=== PATIENT | female | born 1935 | race Caucasian/White ===

== ENCOUNTER 2020-02-13 15:07 | Emergency (ER) | payer MEDICARE, OTHER ==
[2020-02-13 16:25] LABS: #Eosinphils 0.1 thou/uL (0.0-0.7); #Lymphocytes 1.2 thou/uL (1.20-3.40); #Monocytes 0.6 thou/uL (0.11-0.59); #Neutrophils 7.6 thou/uL (1.40-6.50); %Basophils 0.3 % (0.0-1.0); %Eosinophils 1.1 % (0.0-10.0); %Lymphocytes 12.3 % (21.0-51.0); %Monocytes 6.6 % (0.0-10.0); %Neutrophils 79.6 % (42.0-75.0); Hemoglobin 14.1 g/dL (12.0-16.0); Mean Corpuscular HGB CONC 32.7 g/dL (32.0-36.0); Mean Corpuscular Hemoglobin 29.4 pg (27.0-31.0); Mean Corpuscular Volume 89.9 fL (78.0-98.0); Mean Platelet Volume 8.1 fL (7.4-10.4); Platelet Count 203 thou/uL (130-400); RBC Distribution Width 12.6 % (11.5-14.5); Red Blood Cell (RBC) Count 4.79 mill/uL (4.20-5.40); White Blood Cell (WBC) Count 9.6 thou/uL (4.8-10.8)
[2020-02-13 16:48] LABS: ALT (SGPT) 9 U/L (8-55); AST (SGOT) 17 U/L (5-34); Alkaline Phosphatase 68 U/L (40-110); Anion Gap 12 mmol/L (10-20); BUN (Urea Nitrogen) 40 mg/dL (9.8-20.1); Bilirubin, Total 0.8 mg/dL (0.2-1.2); Calc. Creatinine Clearance 0 mL/min (70-130); Calcium 9.9 mg/dL (7.8-10.44); Carbon Dioxide 30 mmol/L (23-31); Chloride 100 mmol/L (98-107); Estimated GFR-MDRD 36; Globulin 3.5 g/dL (2.4-3.5); Glucose 155 mg/dL (83-110); Potassium 4.2 mmol/L (3.5-5.1); Protein, Total 7.5 g/dL (6.0-8.3); Sodium 138 mmol/L (136-145)
== END 2020-02-13 20:48 | disposition home or self-care (01) ==
LOC: ERS 15:07
DX: R20.2 Paresthesia of skin (principal); I10 Essential (primary) hypertension; F41.9 Anxiety disorder, unspecified; Z79.899 Other long term (current) drug therapy
CPT/HCPCS: 36415; 80053; 83605; 85025; 99284

== ENCOUNTER 2020-02-14 08:04 | Emergency (ER) | payer MEDICARE ==
--- NOTE | 2020-02-14 09:24 | ULT ---
ULTRASOUND DOPPLER DUPLEX VENOUS RIGHT LOWER EXTREMITY: DATE: 02/14/2020 HISTORY: 84-year-old female with right lower extremity pain. Dr. Oreilly reported the DVT to TREVOR Castro of the ER at 9:20 AM 02/14/2020 TECHNIQUE: Grayscale, color-flow, and spectral analysis, of the right common femoral, profunda femoral, greater saphenous, femoral, popliteal, and posterior tibial, veins. FINDINGS: There is noncompressibility of the proximal, mid, and distal femoral vein, with decreased blood flow. There is no DVT in the rest of the veins. IMPRESSION: Positive for acute deep vein thrombosis of the entire right femoral vein.
[2020-02-14] MEDS ORDERED: Acetaminophen 500 MG TAB ONE (09:55)
[2020-02-14] MEDS ORDERED: Enoxaparin Sodium 100 MG/ML SYRINGE ONE (09:55)
[2020-02-14 11:04] LABS: #Lymphocytes 0.8 thou/uL (1.20-3.40); #Monocytes 0.7 thou/uL (0.11-0.59); #Neutrophils 7.8 thou/uL (1.40-6.50); %Basophils 0.4 % (0.0-1.0); %Eosinophils 0.1 % (0.0-10.0); %Lymphocytes 8.8 % (21.0-51.0); %Monocytes 7.4 % (0.0-10.0); %Neutrophils 83.3 % (42.0-75.0); Hemoglobin 13.8 g/dL (12.0-16.0); Mean Corpuscular HGB CONC 33.1 g/dL (32.0-36.0); Mean Corpuscular Hemoglobin 29.4 pg (27.0-31.0); Mean Corpuscular Volume 88.8 fL (78.0-98.0); Mean Platelet Volume 7.9 fL (7.4-10.4); Platelet Count 178 thou/uL (130-400); RBC Distribution Width 12.5 % (11.5-14.5); White Blood Cell (WBC) Count 9.3 thou/uL (4.8-10.8)
--- NOTE | 2020-02-14 11:24 | RAD ---
PORTABLE CHEST: Date: 02/14/2020 HISTORY: Leg pain. FINDINGS: Lung aguirre appear clear. No infiltrate or vascular congestion. Heart and mediastinum unremarkable. IMPRESSION: No acute findings. POS: OFF
[2020-02-14 11:25] LABS: ALT (SGPT) 13 U/L (8-55); AST (SGOT) 29 U/L (5-34); Albumin 3.8 g/dL (3.4-4.8); Alkaline Phosphatase 65 U/L (40-110); Anion Gap 14 mmol/L (10-20); BUN (Urea Nitrogen) 37 mg/dL (9.8-20.1); Calc. Creatinine Clearance 0 mL/min (70-130); Calcium 9.5 mg/dL (7.8-10.44); Carbon Dioxide 27 mmol/L (23-31); Chloride 100 mmol/L (98-107); Estimated GFR-MDRD 40; Globulin 3.4 g/dL (2.4-3.5); Glucose 114 mg/dL (83-110); Potassium 3.8 mmol/L (3.5-5.1); Protein, Total 7.2 g/dL (6.0-8.3); Sodium 137 mmol/L (136-145)
[2020-02-14] MEDS ORDERED: traMADol HCl 50 MG TAB ONE (14:16)
--- NOTE | 2020-02-19 13:26 | EKG ---
Test Reason : Blood Pressure : / mmHG Vent. Rate : 076 BPM Atrial Rate : 267 BPM P-R Int : 000 ms QRS Dur : 068 ms QT Int : 390 ms P-R-T Axes : 000 -07 002 degrees QTc Int : 438 ms Atrial fibrillation Cannot rule out Anterior infarct , age undetermined Abnormal ECG Confirmed by NASIR LEWIS DO ([id number]), business editor NORMAN GUERRA ([id number] on 02/19/2020 1:25:47 PM Referred By: Confirmed By:NASIR LEWIS DO
== END 2020-02-14 14:33 | disposition short-term general hospital (02) ==
LOC: ERS 08:04
DX: I82.411 Acute embolism and thrombosis of right femoral vein (principal); I10 Essential (primary) hypertension; F41.9 Anxiety disorder, unspecified; Z85.528 Personal history of other malignant neoplasm of kidney; Z79.899 Other long term (current) drug therapy
CPT/HCPCS: 36415; 71045; 80053; 85025; 93005; 96372; J1650

== ENCOUNTER 2020-02-19 13:47 | Inpatient (IN) | payer MEDICARE, OTHER ==
[2020-02-19] MEDS ORDERED: traMADol HCl 50 MG TAB PO PRN (15:55)
--- NOTE | 2020-02-19 17:35 | HP ---
CHIEF COMPLAINT: Ischemic leg. HISTORY OF PRESENT ILLNESS: This is an 84-year-old female with recent diagnosis of DVT, started on Eliquis and transferred to rehab, hypertension, dyslipidemia, who presents to the emergency room on transfer from the rehab facility due to an ischemic right lower extremity. The patient reports over the past month that she has had pain and swelling in her legs. She was seen initially and advised to elevate her legs. She came to the emergency room on February 13 due to inability to move her right leg with associated blueness in it. She was evaluated, found to have a right lower extremity ultrasound and started on Eliquis. Because of the difficulty with movement, she was transferred to [facility]. At the rehab facility, the patient has had progressive numbness, to the point of unable to discern where her foot is with walking. It has also been blue in appearance, cool to the touch. The patient underwent a CT angiogram today, which shows multiple areas of arterial occlusion in her right lower extremity. In discussion between the cardiovascular surgeon and the rehab physician, the patient was transferred to this facility for evaluation and surgical intervention. By report from the rehab physician, the patient did receive IV fluids in preparation for the contrast CT scan. The patient states that she has intermittent pain, describes it as stabbing and burning in her foot, and underneath her knee, stabbing in quality. There is currently no pain now. She denies any precipitating factors or relieving factors. She denies any prior history of this. Aside from her leg, she denies any other health concerns. She notes that she had some blueness in her left leg, however, this has resolved. PAST MEDICAL HISTORY: 1. DVT, diagnosed a week ago and started on Eliquis with a history of PE in 1997, for which the patient has an IVC filter. 2. Dyslipidemia. 3. Hypertension. 4. Insomnia. 5. History of kidney cancer, status post left nephrectomy. 6. 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 PAST SURGICAL HISTORY: 1. Cholecystectomy. 2. Left nephrectomy. 3. IVC filter. SOCIAL HISTORY: The patient denies any alcohol or tobacco. Her surrogate decision makers are her daughters, Kate or Radha. She is a full code. FAMILY HISTORY: Significant for dad who of an PR and mom who of a cancer at 94. ALLERGIES: SULFA. CURRENT MEDICATIONS: Based on a list from the rehab facility, 1. Alprazolam 0.25 mg at bedtime. 2. Apixaban 10 mg b.i.d. 3. Atorvastatin 20 mg at bedtime. 4. Hydrochlorothiazide 12.5 mg b.i.d. 5. Losartan 50 mg b.i.d. 6. Melatonin 6 mg at bedtime. 7. MiraLAX 17 g daily. 8. Propranolol 40 mg b.i.d. As needed medications are, 1. Tylenol 500 mg 1 tablet every 4 hours. 2. Throat lozenges twice daily. 3. Calcium carbonate 500 or 1000 mg every 6 hours. 4. Clonidine 0.1 mg every 6 hours. 5. Hypoglycemia protocol. 6. Guaifenesin 200 mg every 4 hours. 7. Loperamide 2 mg as needed. 8. Simethicone 80 mg t.i.d. 9. Tramadol 50 mg every 4 hours. REVIEW OF SYSTEMS: Positive for constipation and the right lower extremity symptoms. Negative for fevers, chills, nausea, vomiting, abdominal pain, chest pain, or difficulty breathing. All remaining review of systems are reviewed and negative. PHYSICAL EXAMINATION: VITAL SIGNS: Temperature 98, pulse 90, respirations 18, saturation 96% on room air, blood pressure 130/73. GENERAL: Awake, alert, responsive, not in apparent distress. Able to speak in full sentences. HEENT: No scleral icterus. Oral mucosa is pink and moist. NECK: Supple and nontender. LYMPHATICS: No palpable cervical or supraclavicular lymphadenopathy. LUNGS: Clear to auscultation with good air movement. HEART: Normal S1 and S2. Regular rate and rhythm. No significant murmur. ABDOMEN: Soft with present bowel sounds. Nontender, nondistended. EXTREMITIES: Left lower extremity, no pitting edema clubbing or cyanosis. Right lower extremity is dusky in appearance throughout the foot. It is also cool to touch. PSYCHIATRIC: Appears euthymic. NEUROLOGIC: No focal deficits noted. VASCULAR: No palpable pulses in her right lower extremity, 1+ in her left lower extremity. SKIN: Right foot is cool, dusky in appearance. LABORATORY DATA: Reviewed. CBC on 02/16; 7.8, 13.5, 41.2, 162. Renal panel from 02/18; 137, 4.1, 96, 30, 35, 1.12, 114. Baseline creatinine appears to be 1.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 Minimal contrast material throughout the right superficial femoral artery with recommendation for vascular consultation, bilateral runoff disease. IMPRESSION: 1. Right limb ischemia in the context of arterial occlusion and deep venous thrombosis. 2. Chronic kidney disease, stage 3, secondary to single kidney with a history of kidney cancer, stable. 3. Hypertension, appears controlled. 4. Dyslipidemia. 5. Insomnia. 6. Constipation. PLAN: 1. Admission to the hospital. 2. Consultation with Vascular Surgery. For now, per their recommendations, we will order echocardiogram and change the Eliquis to Lovenox. 3. We will increase her statin. 4. We will hold the losartan and hydrochlorothiazide as the patient does have a single kidney, known chronic kidney disease, and did have a contrast study today. She did receive IV fluids in preparation for this study. We will add these medications back as her renal function remains stable. 5. We will continue her propranolol and order p.r.n. alprazolam. 6. Manage pain. We will continue the tramadol as needed. Can escalate if it is needed. 7. I reviewed with the pharmacist the dosing of Lovenox and b.i.d. is appropriate, and the timing to initiate it as the patient did receive Eliquis - we will start tonight. 8. Monitoring renal function as well as her blood count. 9. DVT prophylaxis. The patient is fully anticoagulated. 10. GI prophylaxis not indicated. She will be written for a heart healthy diet. 11. Code status is full. Surrogate decision makers as noted above. 12. Reviewed the plan of care with the patient and her daughter by speaker, no questions or further needs at the end of evaluation. 13. The patient is at high risk given age, comorbidities, and current presentation. Addendum - after dictation, Pharmacist reviewed again and stated daily dosing is appropriate for CrCl estimated at 29 - she changed the order for me. Job ID: [id number] MTDD
[2020-02-19] MEDS: traMADol HCl 50 MG TAB PO PRN (19:26)
[2020-02-19] MEDS ORDERED: Enoxaparin Sodium 80 MG/0.8 ML SYRINGE SC SCH ×2 (21:00)
[2020-02-19] MEDS: ALPRAZolam 0.25 MG TAB PO PRN (21:24)
[2020-02-19] MEDS: Atorvastatin Calcium 40 MG TAB PO SCH (21:24)
[2020-02-19] MEDS: Propranolol 40 MG TAB PO SCH (21:24)
[2020-02-20] MEDS: Acetaminophen 325 MG TAB PO PRN ×3 (00:48→20:51)
[2020-02-20 04:54] LABS: #Eosinphils 0.1 thou/uL (0.0-0.7); #Lymphocytes 1.2 thou/uL (1.20-3.40); #Monocytes 1.5 thou/uL (0.11-0.59); #Neutrophils 7.6 thou/uL (1.40-6.50); %Basophils 0.5 % (0.0-1.0); %Eosinophils 0.6 % (0.0-10.0); %Lymphocytes 11.5 % (21.0-51.0); %Monocytes 14.1 % (0.0-10.0); %Neutrophils 73.3 % (42.0-75.0); Hemoglobin 12.9 g/dL (12.0-16.0); Mean Corpuscular HGB CONC 33.1 g/dL (32.0-36.0); Mean Corpuscular Hemoglobin 29.7 pg (27.0-31.0); Mean Corpuscular Volume 89.8 fL (78.0-98.0); Mean Platelet Volume 8.5 fL (7.4-10.4); Platelet Count 190 thou/uL (130-400); RBC Distribution Width 12.7 % (11.5-14.5); Red Blood Cell (RBC) Count 4.36 mill/uL (4.20-5.40); White Blood Cell (WBC) Count 10.3 thou/uL (4.8-10.8)
[2020-02-20 05:21] LABS: Anion Gap 15 mmol/L (10-20); BUN (Urea Nitrogen) 29 mg/dL (9.8-20.1); Calc. Creatinine Clearance 50 mL/min (70-130); Carbon Dioxide 28 mmol/L (23-31); Chloride 94 mmol/L (98-107); Estimated GFR-MDRD 54; Glucose 99 mg/dL (83-110); Potassium 3.6 mmol/L (3.5-5.1); Sodium 133 mmol/L (136-145)
[2020-02-20] MEDS: Propranolol 40 MG TAB PO SCH ×2 (08:11→20:51)
[2020-02-20] MEDS: Polyethylene Glycol 3350 17 GM Packet PO SCH (08:11)
--- NOTE | 2020-02-20 08:37 | PDOC.HOSPP ---
- Subjective Encounter Date: 02/20/20 (f/u RLE ischemia) Encounter Time: 08:36 Subjective: Pt admitted yesterday for right limb ischemia in the context of arterial occlusion and DVT. She had pain yesterday. Denies any pain now and is sitting up. She has a heating pad and states it is helping. She denies any n/v/abd pain/cp/sob - Objective Vital Signs & Weight: Vital Signs (12 hours) Temp Pulse Resp BP Pulse Ox 02/20/20 08:00 97.7 F 96 18 144/81 H 93 L 02/20/20 04:00 98.1 F 93 18 140/67 92 L Weight Weight 166 lb 3.2 oz I&O: 02/19/20 02/20/20 02/21/20 06:59 06:59 06:59 Intake Total 340 Balance 340 Result Diagrams: 02/20/20 04:00 02/20/20 04:00 EKG Reviewed by me: Yes (a fib, rate 93, QTc 450, no st changes, abnormal r wave prog. Tele - a fib) Hospitalist ROS - Medication Medications: Active Medications Generic Name Dose Route Start Last Admin Trade Name Freq PRN Reason Stop Dose Admin Acetaminophen 650 mg 02/19/20 15:46 02/20/20 00:48 Acetaminophen 325 Mg Tab PO 650 mg Q6H PRN Administration Headache/Fever/Mild Pain (1-3) Alprazolam 0.25 mg 02/19/20 15:55 02/19/20 21:24 Alprazolam 0.25 Mg Tab PO 0.25 mg HS PRN Administration Insomnia Atorvastatin Calcium 40 mg 02/19/20 21:00 02/19/20 21:24 Atorvastatin Calcium 40 Mg Tab PO 40 mg HS MELY Administration Enoxaparin Sodium 70 mg 02/19/20 21:00 02/19/20 21:24 Enoxaparin Sodium 80 Mg/0.8 Ml Syringe SC 70 mg 2100 MELY Administration Influenza Virus Vaccine Quadrival 240 mcg 02/20/20 09:00 02/20/20 08:11 Flu Vacc [id number](65yr Up)/Pf 240 Mcg/0.7 Ml Syringe IM 02/20/20 09:01 Not Given .ONCE ONE Polyethylene Glycol 17 gm 02/20/20 09:00 02/20/20 08:11 Polyethylene Glycol 3350 17 Gm Packet PO 17 gm DAILY MELY Administration Propranolol HCl 40 mg 02/19/20 21:00 02/20/20 08:11 Propranolol 40 Mg Tab PO 40 mg BID MELY Administration Tramadol HCl 50 mg 02/19/20 16:45 02/19/20 19:26 Tramadol Hcl 50 Mg Tab PO 50 mg Q12H PRN Administration Mild-Moderate Pain (1-5) - Exam General Appearance: NAD Heart: no murmur, irregular Respiratory: CTAB, no wheezes, no rales, no ronchi Gastrointestinal: soft, non-tender, non-distended, normal bowel sounds Extremities - other findings: RLE dusky appearance - unchanged by my exam from yesterday Psychiatric: normal affect Hosp A/P (1) Ischemia of right lower extremity Code(s): I99.8 - OTHER DISORDER OF CIRCULATORY SYSTEM Status: Acute (2) Chronic kidney disease (CKD) Code(s): N18.9 - CHRONIC KIDNEY DISEASE, UNSPECIFIED Status: Chronic Qualifiers: Chronic kidney disease stage: stage 3 (moderate) (3) Hypertension Code(s): I10 - ESSENTIAL (PRIMARY) HYPERTENSION Status: Chronic Qualifiers: Hypertension type: essential hypertension Qualified Code(s): I10 - Essential (primary) hypertension (4) Dyslipidemia Code(s): E78.5 - HYPERLIPIDEMIA, UNSPECIFIED Status: Chronic (5) Insomnia Code(s): G47.00 - INSOMNIA, UNSPECIFIED Status: Chronic Qualifiers: Insomnia type: unspecified Qualified Code(s): G47.00 - Insomnia, unspecified (6) Constipation Code(s): K59.00 - CONSTIPATION, UNSPECIFIED Status: Chronic - Plan Right limb ischemia with arterial occlusion and DVT - [facility] consult today - echo ordered for pre-op eval - lovenox with renal dosing - started last night instead of eliquis due to anticipated surgery CKD - stable - ARB and diuretic held due to contrast study yesterday. As BP's are controlled and surgery is anticipated, will continue to hold these HTN - controlled on propranolol only A fib - rate controlled on propranolol, currently on lovenox for stroke risk r eduction dyslipidemia - continue statin - increased yesterday Insomnia - prn alprazolam Constipation - scheduled and prn meds DVT prophy - full anticoagulation for known DVT GI prophy - not indicated code status full reviewed plan of care with patient, no questions or further needs at end of ev al.
[2020-02-20] MEDS ORDERED: FLU VACC QS2020-21(65YR UP)/PF 240 MCG/0.7 ML SYRINGE IM ONE (09:00)
--- NOTE | 2020-02-20 10:18 | CON ---
DATE OF CONSULTATION: 02/20/2020 REASON FOR CONSULTATION: To evaluate the patient with embolic right leg arterial occlusion. HISTORY OF PRESENT ILLNESS: Ms. Allan is an 84-year-old woman, who has had inpatient rehab, diagnosis of right-sided DVT. She has a history of previous DVT around the time of a nephrectomy in 1997. She had an inferior vena cava filter placed at that time. She is anticoagulated with Eliquis. Dr. Hairston noted that she had continued complaints of numbness in her right leg. This led to vascular exam revealing no palpable pulses in the right leg. He contacted Dr. Partida, and they did a CT angiogram, which reveals a right iliac artery occlusion. There was reconstitution at the level of the superficial femoral artery distally. Superficial femoral artery passes down below the knee, where the anterior tibial was occluded. It appears that the peroneal and posterior tibial are patent. Since the patient has been on Eliquis and this has been going on for at least a couple of weeks, she was transferred and has been converted to Lovenox. Eliquis has been held. The patient has no previous history of peripheral vascular disease. She has no previous history of arrhythmia. She is in atrial fibrillation right now on the monitor. Echocardiogram is pending. PAST MEDICAL HISTORY: 1. History of DVT/PE in the remote past - she has not been on any medications at home. 2. Hypertension. 3. Dyslipidemia. 4. Chronic renal insufficiency secondary to nephrectomy. PAST SURGICAL HISTORY: Left nephrectomy. ALLERGIES: SULFA. MEDICATIONS: At home; 1. Propranolol 40 mg b.i.d. 2. Losartan 50 mg b.i.d. 3. Atorvastatin 20 mg at bedtime. 4. Eliquis 5 mg b.i.d. 5. Loperamide 2 mg daily p.r.n. 6. Simethicone 80 mg t.i.d. p.r.n. 7. Catapres 0.1 mg q.6 p.r.n. REVIEW OF SYSTEMS: A 10-point review of systems is performed, is negative except as above. PHYSICAL EXAMINATION: GENERAL: This is a very pleasant 84-year-old woman, resting comfortably on the telemetry unit. VITAL SIGNS: Height 5 feet 2 inches and weight is 166 pounds. Pulse is irregularly irregular with a rate in the 90s. Her blood pressure 144/81. HEENT: Sclerae nonicteric. Pupils are equal and round bilaterally. NECK: Supple. CHEST: Clear bilaterally. She has no rhonchi or rales. HEART: Rhythm is regular. ABDOMEN: Soft and nontender. EXTREMITIES: She has edema of both lower extremities. There are varicosities overlying both lower extremities. She has a significant fatty burden on both lower extremities. VASCULAR: She has palpable left femoral and dorsalis pedis pulse. On the right, I cannot palpate a femoral or dorsalis pedis pulse. ASSESSMENT AND PLAN: Unfortunate, an 84-year-old woman with probable new onset atrial fibrillation with embolus. Unfortunately, this is going on for at least a couple of weeks. Interestingly, she does not have the typical acute ischemic pain of her right lower extremity. I have discussed with her the possibility of doing an embolectomy both into the iliac system and also into the superficial femoral artery if we can get catheters to pass. Other options would be to stent the iliac system and crush the thrombus burden or do a short bypass down onto her femoral artery from the common iliac artery. Reperfusing her profunda should be enough to keep her going as long as we can obtain good inflow. Job ID: [id number]
[2020-02-20] MEDS: traMADol HCl 50 MG TAB PO PRN (12:30)
[2020-02-20 12:40] LABS: SARS-CoV-2 MS2 Positive; SARS-CoV-2 N Gene Negative; SARS-CoV-2 S Gene Negative; SARS-CoV-2 by NAA Not Detected (NotDetected); SARS-CoV-2 orf1ab Negative
--- NOTE | 2020-02-20 19:24 | PDOC.EVN ---
Event Note - Event Note Event Note: Talked with the pharmacy about the anti-factor Xa level - which was elevated (above therapeutic level). The pharmacist is checking another one tonight at 20:00. The patient's renal function is improved today. Will determine next dose with regards to the level, keeping in mind the planned surgery for tomorrow with [facility]. I discussed the current dosing with Dr. Thomas at once daily - he stated the lovenox does not need to be held tonight for surgery. Will collaborate with Pharmacy after the next test result.
[2020-02-20] MEDS ORDERED: Enoxaparin Sodium 40 MG/0.4 ML SYRINGE SC SCH (19:45)
[2020-02-20] MEDS: Atorvastatin Calcium 40 MG TAB PO SCH (20:51)
[2020-02-20] MEDS: ALPRAZolam 0.25 MG TAB PO PRN (20:52)
[2020-02-20] MEDS ORDERED: Enoxaparin Sodium 80 MG/0.8 ML SYRINGE SC SCH (21:45)
--- NOTE | 2020-02-21 00:09 | CON ---
DATE OF CONSULTATION: REASON FOR CONSULTATION: Atrial fibrillation. HISTORY OF PRESENT ILLNESS: Ms. Allan is a delightful 84-year-old woman having leg pain and vascular insufficiency. The patient has history of deep venous thrombosis in the past. She has inferior vena cava filter. She had been on Eliquis. She is not really clear how long she has been on that. She thinks it was started recently. From reading Dr. Manzano's note, it sounds like the Eliquis was started on February 13. She was sent to rehab subsequently. In the rehab facility, she had trouble with numbness and pain in her foot and a blue discolored foot. CT angiogram was done, showed arterial occlusion. It has been found that she is in atrial fibrillation. PAST HISTORY: 1. Deep venous thrombosis. 2. History of nephrectomy. 3. Cholecystectomy. 4. IVC filter. SOCIAL HISTORY: No alcohol or tobacco. FAMILY HISTORY: Father of an SD. MEDICATIONS: Prior to admission: 1. Apixaban 10 mg twice a day. 2. Atorvastatin. 3. Losartan. 4. MiraLAX. 5. Propranolol. SOCIAL HISTORY: No alcohol or tobacco. REVIEW OF SYSTEMS: A 10-point review of systems performed, negative except as above. PHYSICAL EXAMINATION: GENERAL: This is a pleasant 84-year-old woman, resting comfortably, in no distress. VITAL SIGNS: Her blood pressure is 133/72, pulse 80. It is irregular. EYES: Sclerae are nonicteric. MOUTH: Mucous membranes are moist. NECK: Supple. No lymphadenopathy. LUNGS: Clear. CARDIAC: Irregularly irregular. ABDOMEN: Soft and nontender. EXTREMITIES: There is no edema. There is bluish discoloration on the right foot. Dr. Thomas saw the patient. It has been found that she has a right iliac artery occlusion with reconstitution at the level of the superficial femoral. Currently, she is on Lovenox. ASSESSMENT: 1. Atrial fibrillation. 2. Arterial insufficiency. 3. From what I can tell, she was just recently started on Eliquis, although it is not completely clear from the chart. Plan to continue anticoagulation currently with Lovenox. When she goes home, probably back on Eliquis. 4. Really no other therapy indicated from a cardiac standpoint. 5. Echocardiogram revealed ejection fraction of 55% to 60% with atrial fibrillation, moderate to severe left atrial dilatation, probably chronic atrial fibrillation, long-standing, persistent. Job ID: [id number]
[2020-02-21] MEDS: traMADol HCl 50 MG TAB PO PRN ×2 (02:25→15:35)
[2020-02-21 04:50] LABS: #Lymphocytes 0.9 thou/uL (1.20-3.40); #Monocytes 1.4 thou/uL (0.11-0.59); #Neutrophils 8.5 thou/uL (1.40-6.50); %Basophils 0.4 % (0.0-1.0); %Eosinophils 0.4 % (0.0-10.0); %Lymphocytes 8.5 % (21.0-51.0); %Monocytes 12.6 % (0.0-10.0); %Neutrophils 78.1 % (42.0-75.0); Hemoglobin 12.5 g/dL (12.0-16.0); Mean Corpuscular HGB CONC 32.4 g/dL (32.0-36.0); Mean Corpuscular Hemoglobin 28.9 pg (27.0-31.0); Mean Corpuscular Volume 89.3 fL (78.0-98.0); Platelet Count 197 thou/uL (130-400); RBC Distribution Width 12.7 % (11.5-14.5); Red Blood Cell (RBC) Count 4.32 mill/uL (4.20-5.40); White Blood Cell (WBC) Count 10.9 thou/uL (4.8-10.8)
[2020-02-21 05:10] LABS: Anion Gap 11 mmol/L (10-20); BUN (Urea Nitrogen) 28 mg/dL (9.8-20.1); Calc. Creatinine Clearance 48 mL/min (70-130); Calcium 8.9 mg/dL (7.8-10.44); Carbon Dioxide 31 mmol/L (23-31); Chloride 96 mmol/L (98-107); Estimated GFR-MDRD 51; Glucose 109 mg/dL (83-110); Potassium 3.6 mmol/L (3.5-5.1); Sodium 134 mmol/L (136-145)
[2020-02-21] MEDS ORDERED: Fentanyl 100 MCG/2 ML VIAL SLOW IVP PRN ×2 (08:39)
--- NOTE | 2020-02-21 09:00 | PDOC.HOSPP ---
- Subjective Encounter Date: 02/21/20 (f/u ischemic limb) Encounter Time: 08:59 Subjective: Pt today c/o increasing pain, not relieved with the scheduled tramadol. She is thinking about the procedure. she denies cp/sob/n/v/abd pain. Last bm was 2 days ago. - Objective Vital Signs & Weight: Vital Signs (12 hours) Temp Pulse Resp BP Pulse Ox 02/21/20 04:00 98.4 F 107 H 18 130/76 93 L Weight Weight 167 lb 4.8 oz I&O: 02/20/20 02/21/20 02/22/20 06:59 06:59 06:59 Intake Total 340 960 Balance 340 960 Result Diagrams: 02/21/20 04:37 02/21/20 04:37 EKG Reviewed by me: Yes (tele - a fib 70-80's) Hospitalist ROS - Medication Medications: Active Medications Generic Name Dose Route Start Last Admin Trade Name Freq PRN Reason Stop Dose Admin Acetaminophen 650 mg 02/19/20 15:46 02/20/20 20:51 Acetaminophen 325 Mg Tab PO 650 mg Q6H PRN Administration Headache/Fever/Mild Pain (1-3) Alprazolam 0.25 mg 02/19/20 15:55 02/20/20 20:52 Alprazolam 0.25 Mg Tab PO 0.25 mg HS PRN Administration Insomnia Atorvastatin Calcium 40 mg 02/19/20 21:00 02/20/20 20:51 Atorvastatin Calcium 40 Mg Tab PO 40 mg HS MELY Administration Polyethylene Glycol 17 gm 02/20/20 09:00 02/20/20 08:11 Polyethylene Glycol 3350 17 Gm Packet PO 17 gm DAILY MELY Administration Propranolol HCl 40 mg 02/19/20 21:00 02/20/20 20:51 Propranolol 40 Mg Tab PO 40 mg BID MELY Administration Tramadol HCl 50 mg 02/19/20 16:45 02/21/20 02:25 Tramadol Hcl 50 Mg Tab PO 50 mg Q12H PRN Administration Mild-Moderate Pain (1-5) - Exam General Appearance: NAD Heart: no murmur, irregular Respiratory: CTAB, no wheezes, no rales, no ronchi Gastrointestinal: soft, non-tender, non-distended, normal bowel sounds Extremities: no clubbing, no edema Extremities - other findings: dusky appearance to RLE Psychiatric: normal affect Hosp A/P (1) Ischemia of right lower extremity Code(s): I99.8 - OTHER DISORDER OF CIRCULATORY SYSTEM Status: Acute (2) Chronic kidney disease (CKD) Code(s): N18.9 - CHRONIC KIDNEY DISEASE, UNSPECIFIED Status: Chronic Qualifiers: Chronic kidney disease stage: stage 3 (moderate) (3) Hypertension Code(s): I10 - ESSENTIAL (PRIMARY) HYPERTENSION Status: Chronic Qualifiers: Hypertension type: essential hypertension Qualified Code(s): I10 - Essential (primary) hypertension (4) Dyslipidemia Code(s): E78.5 - HYPERLIPIDEMIA, UNSPECIFIED Status: Chronic (5) Insomnia Code(s): G47.00 - INSOMNIA, UNSPECIFIED Status: Chronic Qualifiers: Insomnia type: unspecified Qualified Code(s): G47.00 - Insomnia, unspecified (6) Constipation Code(s): K59.00 - CONSTIPATION, UNSPECIFIED Status: Chronic - Plan Right limb ischemia with arterial occlusion and DVT - surgery today with [facility] - continuing lovenox with renal dosing at q24h - pt is on the borderline cut-off of creatinine clearance 30 - add prn fentanyl IV for additional pain control. Pt is on renal dosing for tramadol. CKD - stable - ARB and diuretic on hold due to contrast study 2 days ago and normal bp's. Resume after surgery as needed. HTN - controlled on propranolol only A fib - rate controlled on propranolol, currently on lovenox for stroke risk reduction dyslipidemia - continue statin Insomnia - prn alprazolam Constipation - scheduled and prn meds DVT prophy - full anticoagulation for known DVT GI prophy - not indicated code status full reviewed plan of care with patient, no questions or further needs at end of eval.
[2020-02-21] MEDS: Propranolol 40 MG TAB PO SCH ×2 (09:08→21:09)
[2020-02-21] MEDS: Polyethylene Glycol 3350 17 GM Packet PO SCH (09:08)
[2020-02-21] MEDS ORDERED: CEFAZOLIN 2 GM in Premix Bag 1 BAG IVPB SCH (11:30)
[2020-02-21] MEDS ORDERED: Fentanyl 100 MCG/2 ML VIAL ONE (12:00)
[2020-02-21] MEDS ORDERED: Protamine Sulfate 50 MG/5 ML VIAL ONE (12:24)
[2020-02-21] MEDS ORDERED: Bupivacaine/Epinephrine 0.25% 30 ML VIAL ONE (12:24)
[2020-02-21] MEDS ORDERED: Heparin 5,000 UNITS/ML VIAL ONE (12:24)
[2020-02-21] MEDS ORDERED: Fentanyl 250 MCG/5 ML VIAL ONE (12:36)
[2020-02-21] MEDS ORDERED: Lidocaine 1% PF 5 ML VIAL ONE (13:18)
[2020-02-21] MEDS ORDERED: Glycopyrrolate 0.2 MG/ML 5 ML SYRINGE ONE (13:18)
[2020-02-21] MEDS ORDERED: PROPOFOL 200 MG/20 ML VIAL ONE (13:18)
[2020-02-21] MEDS ORDERED: Rocuronium Bromide 10 MG/ML (10ML VIAL) ONE (13:18)
[2020-02-21] MEDS ORDERED: PHENYLEPHRINE-NS 100 MCG/ML 10 ML SYRINGE ONE (13:18)
[2020-02-21] MEDS ORDERED: Calcium Chloride 1 GM/10 ML Abboject SYRINGE ONE (13:18)
[2020-02-21] MEDS ORDERED: Ondansetron PF 4 MG/2 ML Vial ONE (13:18)
--- NOTE | 2020-02-21 15:12 | OP ---
DATE OF PROCEDURE: 02/20/2020 PREOPERATIVE DIAGNOSIS: History of atrial fibrillation with embolus to the right lower extremity. POSTOPERATIVE DIAGNOSIS: History of atrial fibrillation with embolus to the right lower extremity. PROCEDURE PERFORMED: Right iliofemoral embolectomy. TOOL CARRIER: Jose Partida MD ANESTHESIA: General endotracheal. ESTIMATED BLOOD LOSS: Less than 100. DESCRIPTION OF PROCEDURE: After consent was obtained, the patient was brought to the operating room and placed in supine position on the operating room table. Appropriate central line and monitors were placed and general endotracheal anesthesia was induced. Right groin was prepped and draped in the usual sterile fashion. Femoral cutdown was performed through a transverse incision. Common femoral, profunda femoris, and superficial femoral artery origins were carefully dissected free from surrounding tissue. A transverse arteriotomy was performed in the common femoral artery just above the bifurcation. There was a thrombus within the common femoral artery. A #4 Jaime was passed proximally into the iliac artery and withdrawn. There was a large volume of clot, which was withdrawn. The 2nd pass yielded less thrombus and the 3rd pass was clean. The artery was flushed with heparinized saline. The patient was given 5000 units of heparin IV. A thrombectomy catheter was passed down the superficial femoral artery. This yielded again a large volume of thrombus. Three passes were made before a clear pass was performed. The artery was flushed with heparinized saline. The origin of the profundus was cleared with DeBakey forceps. This had good backbleeding and was flushed with heparinized saline. The arteriotomy was closed in a running dual layer fashion with 5-0 Prolene suture. On release of the clamps, there was good antegrade flow and a palpable pulse within the femoral artery. Hemostasis was insured. Wounds were irrigated and closed in layers. Dermabond applied to the skin. The patient was transferred to Recovery in stable condition. Needle, sponge, and instrument counts were all reported correct at the end of the procedure. Job ID: [id number] [facility]
[2020-02-21] MEDS ORDERED: Sodium Chloride 0.9% 1,000 ML IV SCH (18:00)
[2020-02-21 18:58] LABS: #Lymphocytes 0.8 thou/uL (1.20-3.40); #Monocytes 1.5 thou/uL (0.11-0.59); #Neutrophils 13.5 thou/uL (1.40-6.50); %Basophils 0.2 % (0.0-1.0); %Eosinophils 0.1 % (0.0-10.0); %Lymphocytes 5.2 % (21.0-51.0); %Monocytes 9.6 % (0.0-10.0); %Neutrophils 84.9 % (42.0-75.0); Hemoglobin 11.9 g/dL (12.0-16.0); Mean Corpuscular HGB CONC 33.6 g/dL (32.0-36.0); Mean Corpuscular Hemoglobin 30.1 pg (27.0-31.0); Mean Corpuscular Volume 89.7 fL (78.0-98.0); Mean Platelet Volume 8.2 fL (7.4-10.4); Platelet Count 226 thou/uL (130-400); RBC Distribution Width 12.7 % (11.5-14.5); Red Blood Cell (RBC) Count 3.94 mill/uL (4.20-5.40); White Blood Cell (WBC) Count 15.9 thou/uL (4.8-10.8)
[2020-02-21 19:12] LABS: Actual Bicarbonate (HCO3a) 25.4 mEq/L (22-28); Base Excess (BEa) 0.4 mEq/L (-2.0 to +3.0); CO2 Tension 42.6 mmHg (35.0-45.0); Carboxyhemoglobin (COHb) 0.3 gm% (0.0-3.0); O2 Tension (PaO2), arterial 150.4 mmHg (> 60.0); Potassium - ABG Lab 3.95 mmol/L (3.70-5.30); pH, Arterial 7.39 (7.35-7.45)
[2020-02-21 19:13] LABS: Puncture Site L RADIAL
[2020-02-21] MEDS ORDERED: Enoxaparin Sodium 80 MG/0.8 ML SYRINGE SC SCH (21:00)
[2020-02-21] MEDS: CEFAZOLIN 2 GM in Premix Bag 1 BAG IVPB SCH (21:08)
[2020-02-21] MEDS: Atorvastatin Calcium 40 MG TAB PO SCH (21:09)
--- NOTE | 2020-02-22 01:09 | CON ---
DATE OF CONSULTATION: I have been called numerous times and went to the room numerous times to visit with Ms. Allan postoperatively. She underwent a right femoral artery embolectomy today. She is fully anticoagulated. She has had blood pressures in the upper 80s and low 90s postoperatively. She was given 1 L saline bolus. She has atrial fibrillation and her rate is controlled in the low 100 and upper 90s. This has been stable from preop. We have rechecked her hemoglobin and her current hemoglobin is 11.9 - preoperatively, it was 12.5. We have checked a blood gas. Her pH is 7.39, pCO2 of 42, PO2 of 150. Hemoglobin on the blood gas is 11. There has been some consternation about the right groin incision site having a hematoma - she has very doughy and fatty legs. The subcutaneous tissue was obviously stretched at the time of her surgery, and she has what I would expect in an 84-year-old woman who is fully anticoagulated to have post procedure. Her abdomen is soft and nontender I tried to reassure the staff but have been unable to quell their fears. Therefore, I am transferring her to the intensive care unit for monitoring higher level of care. We will recheck her blood counts in the morning. Otherwise, continue with current plan. Job ID: [id number] MTDD
[2020-02-22] MEDS: CEFAZOLIN 2 GM in Premix Bag 1 BAG IVPB SCH ×2 (04:01→12:36)
[2020-02-22 07:05] LABS: #Lymphocytes 0.9 thou/uL (1.20-3.40); #Neutrophils 15.2 thou/uL (1.40-6.50); %Basophils 0.1 % (0.0-1.0); %Eosinophils 0.1 % (0.0-10.0); %Lymphocytes 4.8 % (21.0-51.0); %Monocytes 11.2 % (0.0-10.0); %Neutrophils 83.7 % (42.0-75.0); Hemoglobin 10.3 g/dL (12.0-16.0); Mean Corpuscular HGB CONC 32.2 g/dL (32.0-36.0); Mean Corpuscular Hemoglobin 29.5 pg (27.0-31.0); Mean Corpuscular Volume 91.6 fL (78.0-98.0); Mean Platelet Volume 8.5 fL (7.4-10.4); Platelet Count 232 thou/uL (130-400); RBC Distribution Width 12.8 % (11.5-14.5); White Blood Cell (WBC) Count 18.2 thou/uL (4.8-10.8)
[2020-02-22] MEDS ORDERED: Digoxin 0.5 MG/2 ML AMP ONE (09:57)
[2020-02-22] MEDS ORDERED: Sodium Chloride 0.9% 500 ML IVPB SCH (11:00)
[2020-02-22] MEDS ORDERED: Digoxin 0.5 MG/2 ML AMP SLOW IVP SCH (11:00)
--- NOTE | 2020-02-22 13:27 | PRG ---
DATE OF SERVICE: 02/22/2020 SUBJECTIVE: Ms. Allan had a drop in blood pressure. This morning she responded to intravenous digoxin and fluid bolus. OBJECTIVE: VITAL SIGNS: Blood pressure this morning 96/50, pulse 90. It is irregular. LUNGS: Clear. CARDIAC: Irregularly irregular. ABDOMEN: Obese, nontender. EXTREMITIES: The right lower extremity is warm and dry. The left foot is cool, but not cold. ASSESSMENT: 1. Atrial fibrillation, chronic. 2. Status post femoral embolectomy. 3. Hypotension, uncertain etiology. PLAN: 1. She received fluid. 2. We will repeat an EKG. 3. She is due to resume anticoagulation tonight. Job ID: [id number]
[2020-02-22 13:45] LABS: #Lymphocytes 0.8 thou/uL (1.20-3.40); #Monocytes 2.3 thou/uL (0.11-0.59); #Neutrophils 15.5 thou/uL (1.40-6.50); %Basophils 0.1 % (0.0-1.0); %Eosinophils 0.1 % (0.0-10.0); %Lymphocytes 4.4 % (21.0-51.0); %Monocytes 12.4 % (0.0-10.0); %Neutrophils 83.2 % (42.0-75.0); Hemoglobin 9.3 g/dL (12.0-16.0); Mean Corpuscular HGB CONC 33.3 g/dL (32.0-36.0); Mean Corpuscular Hemoglobin 30.2 pg (27.0-31.0); Mean Corpuscular Volume 90.6 fL (78.0-98.0); Mean Platelet Volume 8.4 fL (7.4-10.4); Platelet Count 227 thou/uL (130-400); RBC Distribution Width 12.8 % (11.5-14.5); Red Blood Cell (RBC) Count 3.07 mill/uL (4.20-5.40); White Blood Cell (WBC) Count 18.7 thou/uL (4.8-10.8)
--- NOTE | 2020-02-22 13:50 | PDOC.HOSPP ---
- Subjective Encounter Date: 02/22/20 Encounter Time: 12:00 Subjective: awake, oriented well, has mild dyscomfort in right leg no chest pain or palp is worried she will lose her right leg - Objective Vital Signs & Weight: Vital Signs (12 hours) Temp Pulse 02/22/20 10:00 120 H 02/22/20 04:00 98.1 F Weight Admit Weight 166 lb Weight 167 lb 1.766 oz Most Recent Monitor Data Heart Rate from ECG 121 NIBP 66/46 NIBP BP-Mean 50 Respiration from ECG 16 SpO2 100 I&O: 02/21/20 02/22/20 02/23/20 06:59 06:59 06:59 Intake Total 960 504 100 Output Total 100 Balance 960 404 100 Result Diagrams: 02/22/20 12:54 02/21/20 04:37 Hospitalist ROS - Medication Medications: Active Medications Generic Name Dose Route Start Last Admin Trade Name Freq PRN Reason Stop Dose Admin Acetaminophen 650 mg 02/19/20 15:46 02/20/20 20:51 Acetaminophen 325 Mg Tab PO 650 mg Q6H PRN Administration Headache/Fever/Mild Pain (1-3) Alprazolam 0.25 mg 02/19/20 15:55 02/20/20 20:52 Alprazolam 0.25 Mg Tab PO 0.25 mg HS PRN Administration Insomnia Atorvastatin Calcium 40 mg 02/19/20 21:00 02/21/20 21:09 Atorvastatin Calcium 40 Mg Tab PO 40 mg HS MELY Administration Fentanyl 25 mcg 02/21/20 08:39 02/21/20 09:08 Fentanyl 100 Mcg/2 Ml Vial SLOW IVP 25 mcg Q4H PRN Administration Mild-Moderate Pain (1-5) Polyethylene Glycol 17 gm 02/20/20 09:00 02/21/20 09:08 Polyethylene Glycol 3350 17 Gm Packet PO Not Given DAILY MELY Propranolol HCl 40 mg 02/19/20 21:00 02/21/20 21:09 Propranolol 40 Mg Tab PO Not Given BID MELY Tramadol HCl 50 mg 02/19/20 16:45 02/21/20 02:25 Tramadol Hcl 50 Mg Tab PO 50 mg Q12H PRN Administration Mild-Moderate Pain (1-5) - Exam General Appearance: awake alert Eye: PERRL, anicteric sclera ENT: no oropharyngeal lesions, moist mucosa Neck: supple, no JVD Heart: RRR, no murmur Respiratory: no wheezes, no rales Gastrointestinal: soft, non-tender, non-distended, normal bowel sounds Extremities - other findings: right LE edema, is warm. Left LE is a bit cold to touch, pulses felt though Neurological: cranial nerve grossly intact, no focal deficits Psychiatric: normal affect, A&O x 3 Hosp A/P (1) Ischemia of right lower extremity Code(s): I99.8 - OTHER DISORDER OF CIRCULATORY SYSTEM Status: Acute (2) Deep vein thrombosis (DVT) of right lower extremity Code(s): I82.401 - ACUTE EMBOLISM AND THOMBOS UNSP DEEP VEINS OF R LOW EXTREM Status: Acute Qualifiers: Affected thrombotic vein of extremity: femoral Chronicity: acute Qualified Code(s): I82.411 - Acute embolism and thrombosis of right femoral vein (3) Afib Code(s): I48.91 - UNSPECIFIED ATRIAL FIBRILLATION Status: Chronic Qualifiers: Atrial fibrillation type: paroxysmal Qualified Code(s): I48.0 - Paroxysmal atrial fibrillation (4) Chronic kidney disease (CKD) Code(s): N18.9 - CHRONIC KIDNEY DISEASE, UNSPECIFIED Status: Chronic Qualifiers: Chronic kidney disease stage: stage 3 (moderate) (5) Dyslipidemia Code(s): E78.5 - HYPERLIPIDEMIA, UNSPECIFIED Status: Chronic (6) Hypertension Code(s): I10 - ESSENTIAL (PRIMARY) HYPERTENSION Status: Chronic Qualifiers: Hypertension type: essential hypertension Qualified Code(s): I10 - Essential (primary) hypertension - Plan she got diagnosed with right leg massive dvt on 02/13 and was sent to rehab to [facility] is currently s/p iliofemoral embolectomy likely caused by afib 02/20 right LE is edematous (non pitting) likely from massive dvt, is warm to touch, can elevate or wear dustin hose if cleared by vascular surgery. is on lipitor, propranolol, fentanyl prn may add asp and eliquis renal dose if cleared by PT to mobilize as tolerated I have discussed code status and she wants to have everything done, she was functional before, was gardening and ambulating wo assistive devices (used to sit for 2 hr stretches in between to watch tv) May tx to medical floor
[2020-02-22 14:06] LABS: Troponin I 0.048 ng/mL (< 0.028)
[2020-02-22] MEDS: Polyethylene Glycol 3350 17 GM Packet PO SCH (17:57)
[2020-02-22] MEDS: Propranolol 40 MG TAB PO SCH ×2 (17:57→20:47)
[2020-02-22] MEDS: Atorvastatin Calcium 40 MG TAB PO SCH (20:44)
[2020-02-22] MEDS: Acetaminophen 325 MG TAB PO PRN (20:44)
[2020-02-22] MEDS ORDERED: Apixaban 5 MG TAB PO SCH (21:00)
[2020-02-23] MEDS: traMADol HCl 50 MG TAB PO PRN ×2 (00:44→13:35)
--- NOTE | 2020-02-23 00:57 | CON ---
DATE OF CONSULTATION: 02/22/2020 HISTORY OF PRESENT ILLNESS: Ms. Allan is very pleasant 84-year-old female. I have taken care of her in the distant past. She remembered me when I walked in the room. She unfortunately had atrial fibrillation and required an embolectomy to restore blood flow to her right lower extremity. I was consulted because of her presence in the Critical Care Unit. PAST MEDICAL HISTORY: Remarkable for 1. DVT. 2. History of hypertension. 3. Lipid disorder. 4. History of nephrectomy here at [facility] when I met her in the 90s. 5. History of insomnia. 6. History of an inferior vena cava filter. 7. History of cholecystectomy. SOCIAL HISTORY: She is nonsmoker and nondrinker. FAMILY HISTORY: Positive for vascular disease and cancer. ALLERGIES: SHE REPORTS ALLERGIES TO SULFA. REVIEW OF SYSTEMS: Otherwise negative. Says her legs have tingling, but other than that, it feels much better. PHYSICAL EXAMINATION: VITAL SIGNS: Heart rate is 80, blood pressure 78/52, respiratory rate is 20. HEAD AND NECK EXAM: Unremarkable. LUNGS: Clear. HEART: Regular rhythm. S1, S2 are normal. ABDOMEN: Soft and nontender. EXTREMITIES: Right lower extremity is actually warmer than her left lower extremity. NEURO: Nonfocal. IMPRESSION: Status post embolectomy associated with atrial fibrillation, clinically stable. We will follow with the other physicians caring for her. She appears to be stable at this time. This is a 70 min consult with greater than 50% of the time spent on the unit with coordination of care excluding procedures. Job ID: [id number] MTDD
[2020-02-23] MEDS: HYDROcodone/Acetaminophen 5/325 mg Tablet PO PRN (02:16)
[2020-02-23] MEDS: Acetaminophen 325 MG TAB PO PRN (02:17)
[2020-02-23 03:17] LABS: #Lymphocytes 0.9 thou/uL (1.20-3.40); #Monocytes 2.2 thou/uL (0.11-0.59); #Neutrophils 14.2 thou/uL (1.40-6.50); %Eosinophils 0.1 % (0.0-10.0); %Lymphocytes 5.3 % (21.0-51.0); %Monocytes 12.6 % (0.0-10.0); Hemoglobin 8.6 g/dL (12.0-16.0); Mean Corpuscular Hemoglobin 29.7 pg (27.0-31.0); Mean Corpuscular Volume 89.9 fL (78.0-98.0); Mean Platelet Volume 8.8 fL (7.4-10.4); Platelet Count 241 thou/uL (130-400); RBC Distribution Width 12.8 % (11.5-14.5); Red Blood Cell (RBC) Count 2.89 mill/uL (4.20-5.40); White Blood Cell (WBC) Count 17.3 thou/uL (4.8-10.8)
[2020-02-23] MEDS ORDERED: Apixaban 5 MG TAB PO SCH (09:00)
[2020-02-23] MEDS ORDERED: Digoxin 0.125 MG TAB PO SCH (09:00)
[2020-02-23] MEDS: Polyethylene Glycol 3350 17 GM Packet PO SCH (10:05)
[2020-02-23] MEDS: Sodium Chloride 0.9% 1,000 ML IV SCH ×3 (10:06→18:08)
--- NOTE | 2020-02-23 10:06 | PRG ---
DATE OF SERVICE: 02/23/2020 SUBJECTIVE: Ms. Allan says she feels better today. OBJECTIVE: VITAL SIGNS: Her blood pressure is still in the 80s systolic, pulse is 80 and it is irregular, it is in atrial fibrillation. LUNGS: Clear. CARDIAC: Irregularly irregular. ABDOMEN: Soft, nontender. EXTREMITIES: Both are warm and dry now. LABORATORY DATA: The patient's hemoglobin is dropped slightly more down to 8.6. ASSESSMENT: 1. Atrial fibrillation, persistent. 2. Status post embolectomy, successful. 3. Hypotension. 4. Mild anemia. PLAN: 1. She is going to go back on the Eliquis this morning. 2. Give her some intravenous fluid. 3. Need to keep her in the ICU till her blood pressure stabilizes. 4. Stop beta blockers. 5. Continue digoxin. Job ID: [id number]
[2020-02-23] MEDS: Propranolol 40 MG TAB PO SCH (10:15)
[2020-02-23] MEDS ORDERED: Sodium Chloride 0.9% 400 ML IVPB SCH (13:15)
[2020-02-23] MEDS ORDERED: DOPamine 400 MG/D5W 250 ML 250 ML IVPB SCH (14:00)
--- NOTE | 2020-02-23 14:08 | PDOC.HOSPP ---
- Subjective Encounter Date: 02/23/20 Encounter Time: 08:40 Subjective: awake, has some groin pain otherwise feels good is eating well no sob or abd pain or nausea - Objective Vital Signs & Weight: Vital Signs (12 hours) Temp Pulse Pulse Ox 02/23/20 12:00 98.7 F 02/23/20 10:06 81 02/23/20 08:00 98 F 99 02/23/20 04:00 97.8 F Weight Admit Weight 166 lb Weight 175 lb 14.862 oz Most Recent Monitor Data Heart Rate from ECG 88 NIBP 88/40 NIBP BP-Mean 55 Respiration from ECG 19 SpO2 100 I&O: 02/22/20 02/23/20 02/24/20 06:59 06:59 06:59 Intake Total 504 1254 200 Output Total 100 0 0 Balance 404 1254 200 Result Diagrams: 02/23/20 02:25 02/23/20 02:25 Hospitalist ROS - Medication Medications: Active Medications Generic Name Dose Route Start Last Admin Trade Name Freq PRN Reason Stop Dose Admin Acetaminophen 650 mg 02/19/20 15:46 02/23/20 02:17 Acetaminophen 325 Mg Tab PO 325 mg Q6H PRN Administration Headache/Fever/Mild Pain (1-3) Hydrocodone Bitart/Acetaminophen 1 tab 02/23/20 02:01 02/23/20 02:16 Hydrocodone/Acetaminophen 5/325 Mg Tablet PO 1 tab Q4H PRN Administration Mild-Moderate Pain (1-5) Alprazolam 0.25 mg 02/19/20 15:55 02/20/20 20:52 Alprazolam 0.25 Mg Tab PO 0.25 mg HS PRN Administration Insomnia Apixaban 5 mg 02/23/20 09:00 02/23/20 10:06 Apixaban 5 Mg Tab PO 5 mg BID MELY Administration Atorvastatin Calcium 40 mg 02/19/20 21:00 02/22/20 20:44 Atorvastatin Calcium 40 Mg Tab PO 40 mg HS MELY Administration Digoxin 0.125 mg 02/23/20 09:00 02/23/20 10:06 Digoxin 0.125 Mg Tab PO 0.125 mg DAILY MELY Administration Fentanyl 25 mcg 02/21/20 08:39 02/21/20 09:08 Fentanyl 100 Mcg/2 Ml Vial SLOW IVP 25 mcg Q4H PRN Administration Mild-Moderate Pain (1-5) Sodium Chloride 1,000 mls @ 100 mls/hr 02/23/20 09:15 02/23/20 12:45 Normal Saline 0.9% IV 1,000 mls .Q10H MELY Administration Sodium Chloride 400 mls @ 0 mls/hr 02/23/20 13:15 02/23/20 13:36 Normal Saline 0.9% IVPB 02/23/20 15:00 400 mls NOW MELY Administration As Directed Polyethylene Glycol 17 gm 02/20/20 09:00 02/23/20 10:05 Polyethylene Glycol 3350 17 Gm Packet PO Not Given DAILY MELY Tramadol HCl 50 mg 02/19/20 16:45 02/23/20 13:35 Tramadol Hcl 50 Mg Tab PO 50 mg Q12H PRN Administration Mild-Moderate Pain (1-5) - Exam General Appearance: awake alert Eye: PERRL, anicteric sclera ENT: no oropharyngeal lesions, moist mucosa Neck: supple, no JVD Heart: no murmur, irregular Respiratory: no wheezes, no rales Gastrointestinal: soft, non-distended, normal bowel sounds, no guarding, no rigidity Extremities: no cyanosis, 1+ LE edema Extremities - other findings: right LE edema is receding well, is warm to touch Neurological: cranial nerve grossly intact, no focal deficits Psychiatric: normal affect, A&O x 3 Hosp A/P (1) Ischemia of right lower extremity Code(s): I99.8 - OTHER DISORDER OF CIRCULATORY SYSTEM Status: Acute (2) Deep vein thrombosis (DVT) of right lower extremity Code(s): I82.401 - ACUTE EMBOLISM AND THOMBOS UNSP DEEP VEINS OF R LOW EXTREM Status: Acute Qualifiers: Affected thrombotic vein of extremity: femoral Chronicity: acute Qualified Code(s): I82.411 - Acute embolism and thrombosis of right femoral vein (3) Afib Code(s): I48.91 - UNSPECIFIED ATRIAL FIBRILLATION Status: Chronic Qualifiers: Atrial fibrillation type: paroxysmal Qualified Code(s): I48.0 - Paroxysmal atrial fibrillation (4) Chronic kidney disease (CKD) Code(s): N18.9 - CHRONIC KIDNEY DISEASE, UNSPECIFIED Status: Chronic Qualifiers: Chronic kidney disease stage: stage 3 (moderate) (5) Dyslipidemia Code(s): E78.5 - HYPERLIPIDEMIA, UNSPECIFIED Status: Chronic (6) Hypertension Code(s): I10 - ESSENTIAL (PRIMARY) HYPERTENSION Status: Chronic Qualifiers: Hypertension type: essential hypertension Qualified Code(s): I10 - Essential (primary) hypertension (7) ISMAEL (acute kidney injury) Code(s): N17.9 - ACUTE KIDNEY FAILURE, UNSPECIFIED Status: Acute - Plan she got diagnosed with right leg massive dvt on 02/13 and was sent to rehab to recuperate is currently s/p iliofemoral embolectomy likely caused by afib 02/20 right LE is edematous from massive dvt is receding now, has ivc filter as well. is on eliquis, lipitor, propranolol, digoxin, fentanyl prn PT to mobilize as tolerated I have discussed code status and she wants to have everything done, she was functional before, was gardening and ambulating wo assistive devices (used to sit for 2 hr stretches in between to watch tv) urine output is decreasing per staff, is on iv fluids, creatinine around 2 today, d/w . If above gets worse may add levophed, watch for afib
[2020-02-23 15:26] LABS: Albumin 2.4 g/dL (3.4-4.8); Anion Gap 11 mmol/L (10-20); BUN (Urea Nitrogen) 65 mg/dL (9.8-20.1); BUN/Creatinine Ratio 29.41; Calc. Creatinine Clearance 23 mL/min (70-130); Calcium 7.6 mg/dL (7.8-10.44); Carbon Dioxide 25 mmol/L (23-31); Chloride 103 mmol/L (98-107); Estimated GFR-MDRD 21; Glucose 152 mg/dL (83-110); Phosphorus 3.9 mg/dL (2.3-4.7); Potassium 4.4 mmol/L (3.5-5.1); Sodium 135 mmol/L (136-145)
--- NOTE | 2020-02-23 15:49 | PRG ---
DATE OF SERVICE: 02/23/2020 OBJECTIVE: VITAL SIGNS: Ms. Allan's heart rates in the 90s, blood pressure 91/61, respiratory rates in the teens. LUNGS: Unchanged. HEART: Unchanged. ABDOMEN: Unchanged. LABORATORY DATA: White count 17.3, hemoglobin 8.6, platelets 241. Sodium 134, potassium 3.6, chloride 96, bicarb 31, BUN 28, creatinine 1.03, it was two days ago. IMPRESSION: Status post embolectomy for large thrombus involving her right lower extremity, clinically stable at this time. We will continue to follow. Job ID: [id number]
[2020-02-23] MEDS ORDERED: DOPamine 400 MG/D5W 250 ML 250 ML ONE (17:06)
--- NOTE | 2020-02-23 17:15 | EKG ---
Test Reason : Blood Pressure : / mmHG Vent. Rate : 087 BPM Atrial Rate : 394 BPM P-R Int : 000 ms QRS Dur : 078 ms QT Int : 358 ms P-R-T Axes : 000 001 246 degrees QTc Int : 430 ms Atrial fibrillation Abnormal ECG When compared with ECG of 20-FEB-2020 07:55, (Unconfirmed) T wave inversion now evident in Anterior leads Confirmed by JAYLON ROLDAN (2) on 02/23/2020 5:15:11 PM Referred By: GOOD Confirmed By:JAYLON ROLDAN
[2020-02-23] MEDS: DOPamine 400 MG/D5W 250 ML 250 ML IVPB SCH (18:08)
[2020-02-23] MEDS: Atorvastatin Calcium 40 MG TAB PO SCH (21:44)
[2020-02-24 05:22] LABS: #Lymphocytes 1.2 thou/uL (1.20-3.40); #Monocytes 2.5 thou/uL (0.11-0.59); #Neutrophils 13.3 thou/uL (1.40-6.50); %Eosinophils 0.1 % (0.0-10.0); %Lymphocytes 7.2 % (21.0-51.0); %Monocytes 14.8 % (0.0-10.0); %Neutrophils 77.9 % (42.0-75.0); Hemoglobin 9.3 g/dL (12.0-16.0); Mean Corpuscular HGB CONC 31.9 g/dL (32.0-36.0); Mean Corpuscular Hemoglobin 28.8 pg (27.0-31.0); Mean Corpuscular Volume 90.3 fL (78.0-98.0); Mean Platelet Volume 8.3 fL (7.4-10.4); Platelet Count 295 thou/uL (130-400); RBC Distribution Width 12.9 % (11.5-14.5); Red Blood Cell (RBC) Count 3.23 mill/uL (4.20-5.40); White Blood Cell (WBC) Count 17.1 thou/uL (4.8-10.8)
--- NOTE | 2020-02-24 06:30 | CON ---
DATE OF CONSULTATION: REQUESTING PHYSICIAN: Dr. Nuñez. REASON FOR CONSULTATION: 1. Acute kidney injury. 2. DVT. 3. Ischemic lower extremity. PLAN: 1. Hemodynamic support. This patient's acute kidney injury is likely hemodynamically mediated in the context of hypotension. Therefore, we will recommend IV fluid support. 2. We will recommend against the use of dopamine. 3. Renally dose all medications and avoid potentially nephrotoxic agents. 4. Further management will be dependent on the clinical course. HISTORY OF PRESENT ILLNESS: History is that of an 84-year-old female who presented here with ischemic leg with a recent diagnosis of DVT and a past medical history hypertension, dyslipidemia. Presented as a transfer from rehab due to ischemic right lower extremity. The patient did undergo a CT angiogram that revealed anterior occlusion. The patient also did undergo right iliofemoral embolectomy by a cardiovascular surgeon. Over the course of hospitalization, the patient noted with a creatinine of about 0.98 to 1.03, but now at this time of dictation, creatinine has gone up to 2.21, believed to be more or less hemodynamically mediated as well as contrast-induced nephropathy. As a result of these findings, decision has been taken to involve Renal in the management of this case. PAST MEDICAL HISTORY: Significant for DVT; dyslipidemia; hypertension; insomnia; history of renal cancer, status post left nephrectomy; chronic kidney disease in the context of nephrectomy. SOCIAL HISTORY: No alcohol. No tobacco. No illicit drug use. FAMILY HISTORY: Nonsignificantly related to present illness. ALLERGIES: TO SULFA. MEDICATIONS: Reviewed as documented on [employer] [place]. PHYSICAL EXAMINATION: VITAL SIGNS: The patient noted with the following vital signs, afebrile, temperature 97.7, heart rate of 76, blood pressure of 80/38, and O2 saturation 100%. HEENT: Unremarkable. CARDIOVASCULAR SYSTEM: First and second heart sounds were heard. Irregularly irregular. RESPIRATORY SYSTEM: Clear to auscultation. DIGESTIVE SYSTEM: Revealed a benign abdomen. EXTREMITIES: Showed 1+ lower extremity edema. LABORATORY INVESTIGATION: Significant for creatinine of 2.21 with BUN of 65, sodium 135. In summary, an 84-year-old female with ischemic lower extremity and DVT, who is now experiencing acute on chronic kidney disease in the context of hemodynamically mediated injury and contrast nephropathy. Thank you for this consultation. We will follow with you. Job ID: [id number]
[2020-02-24] MEDS ORDERED: Furosemide 20 MG/2 ML VIAL SLOW IVP SCH (08:00)
--- NOTE | 2020-02-24 08:18 | PRG ---
DATE OF SERVICE: 02/24/2020 SUBJECTIVE: Ms. Allan is extremely edematous. OBJECTIVE: VITAL SIGNS: Her blood pressure is approximately 100 systolic, it is variable as she is in atrial fibrillation. The heart rate is rapid, it is about the 100 to 120 range. LUNGS: Clear. CARDIAC: Irregularly irregular. ABDOMEN: Soft and nontender. EXTREMITIES: There is [id number] edema. ASSESSMENT: 1. Peripheral edema related to intravenous fluid. 2. Hypotension. 3. History of atrial fibrillation. 4. Status post embolectomy. PLAN: 1. Change to intravenous digoxin. 2. Need to decrease dopamine, it is likely increasing the heart rate. 3. [employer] her one dose of Lasix. 4. Reduce IV fluid. 5. Apixaban dose has been decreased in view of the renal insufficiency and age. Job ID: [id number]
[2020-02-24] MEDS: Sodium Chloride 0.9% 1,000 ML IV SCH (08:22)
[2020-02-24] MEDS: Digoxin 0.5 MG/2 ML AMP SLOW IVP SCH (08:23)
[2020-02-24] MEDS: Apixaban 2.5 MG TAB PO SCH ×2 (09:21→21:04)
[2020-02-24] MEDS: Polyethylene Glycol 3350 17 GM Packet PO SCH (09:23)
--- NOTE | 2020-02-24 09:43 | OP ---
DATE OF PROCEDURE: 02/22/2020 PROCEDURE PERFORMED: Central line placement. INDICATION: prophylaxis. DESCRIPTION OF PROCEDURE: Left groin was prepped with Betadine. Femoral vein was easily cannulated first pass. A vein dilator was inserted. Triple-lumen catheter was inserted and sewn in place x2. Good blood return was obtained from all three ports. Sterile dressing was applied. She tolerated procedure well. Job ID: [id number]
[2020-02-24] MEDS ORDERED: Albumin 25% 25 GM/100 ML BOT IVPB ONE (13:30)
[2020-02-24] MEDS: DOPamine 400 MG/D5W 250 ML 250 ML IVPB SCH (14:08)
--- NOTE | 2020-02-24 14:50 | PDOC.HOSPP ---
- Subjective Encounter Date: 02/24/20 Encounter Time: 08:35 Subjective: c/o edema, no sob has difficulty moving her right ankle, encouraged to keep trying, she can feel her foot and ankle - Objective Vital Signs & Weight: Vital Signs (12 hours) Temp Pulse Pulse Ox 02/24/20 08:23 109 H 02/24/20 08:00 98.3 F 99 02/24/20 04:00 98.3 F Weight Admit Weight 166 lb Weight 175 lb 11.335 oz Most Recent Monitor Data Heart Rate from ECG 96 NIBP 103/42 NIBP BP-Mean 71 Respiration from ECG 18 SpO2 100 I&O: 02/23/20 02/24/20 02/25/20 06:59 06:59 06:59 Intake Total 1254 2803.6 440 Output Total 0 730 110 Balance 1254 2073.6 330 Result Diagrams: 02/24/20 04:00 02/23/20 14:47 Hospitalist ROS - Medication Medications: Active Medications Generic Name Dose Route Start Last Admin Trade Name Freq PRN Reason Stop Dose Admin Acetaminophen 650 mg 02/19/20 15:46 02/23/20 02:17 Acetaminophen 325 Mg Tab PO 325 mg Q6H PRN Administration Headache/Fever/Mild Pain (1-3) Hydrocodone Bitart/Acetaminophen 1 tab 02/23/20 02:01 02/23/20 02:16 Hydrocodone/Acetaminophen 5/325 Mg Tablet PO 1 tab Q4H PRN Administration Mild-Moderate Pain (1-5) Alprazolam 0.25 mg 02/19/20 15:55 02/20/20 20:52 Alprazolam 0.25 Mg Tab PO 0.25 mg HS PRN Administration Insomnia Apixaban 2.5 mg 02/24/20 09:00 02/24/20 09:21 Apixaban 2.5 Mg Tab PO 2.5 mg BID MELY Administration Atorvastatin Calcium 40 mg 02/19/20 21:00 02/23/20 21:44 Atorvastatin Calcium 40 Mg Tab PO 40 mg HS MELY Administration Digoxin 0.125 mg 02/24/20 09:00 02/24/20 08:23 Digoxin 0.5 Mg/2 Ml Amp SLOW IVP 0.125 mg DAILY MELY Administration Fentanyl 25 mcg 02/21/20 08:39 02/21/20 09:08 Fentanyl 100 Mcg/2 Ml Vial SLOW IVP 25 mcg Q4H PRN Administration Mild-Moderate Pain (1-5) Dopamine HCl/Dextrose 250 mls @ 7.481 mls/hr 02/23/20 17:15 02/24/20 14:08 Dopamine 400 Mg/D5w 250 Ml IVPB 250 mls INF MELY Administration Protocol 2.5 MCG/KG/MIN Sodium Chloride 1,000 mls @ 40 mls/hr 02/24/20 07:58 02/24/20 08:22 Normal Saline 0.9% IV Not Given .Q24H MELY Polyethylene Glycol 17 gm 02/20/20 09:00 02/24/20 09:23 Polyethylene Glycol 3350 17 Gm Packet PO 17 gm DAILY MELY Administration Tramadol HCl 50 mg 02/19/20 16:45 02/23/20 13:35 Tramadol Hcl 50 Mg Tab PO 50 mg Q12H PRN Administration Mild-Moderate Pain (1-5) - Exam General Appearance: awake alert Eye: PERRL, anicteric sclera ENT: no oropharyngeal lesions, moist mucosa Neck: supple, JVD Heart: no murmur, irregular Respiratory: no wheezes, no ronchi, rales Gastrointestinal: soft, non-tender, normal bowel sounds, no guarding, no rigidity Extremities: no cyanosis, 2+ LE edema Neurological: cranial nerve grossly intact, no focal deficits Psychiatric: A&O x 3 Hosp A/P (1) Ischemia of right lower extremity Code(s): I99.8 - OTHER DISORDER OF CIRCULATORY SYSTEM Status: Acute (2) Deep vein thrombosis (DVT) of right lower extremity Code(s): I82.401 - ACUTE EMBOLISM AND THOMBOS UNSP DEEP VEINS OF R LOW EXTREM Status: Acute Qualifiers: Affected thrombotic vein of extremity: femoral Chronicity: acute Qualifie d Code(s): I82.411 - Acute embolism and thrombosis of right femoral vein (3) Afib Code(s): I48.91 - UNSPECIFIED ATRIAL FIBRILLATION Status: Chronic Qualifiers: Atrial fibrillation type: paroxysmal Qualified Code(s): I48.0 - Paroxysmal atrial fibrillation (4) Chronic kidney disease (CKD) Code(s): N18.9 - CHRONIC KIDNEY DISEASE, UNSPECIFIED Status: Chronic Qualifiers: Chronic kidney disease stage: stage 3 (moderate) (5) Dyslipidemia Code(s): E78.5 - HYPERLIPIDEMIA, UNSPECIFIED Status: Chronic (6) Hypertension Code(s): I10 - ESSENTIAL (PRIMARY) HYPERTENSION Status: Chronic Qualifiers: Hypertension type: essential hypertension Qualified Code(s): I10 - [place] l (primary) hypertension (7) ISMAEL (acute kidney injury) Code(s): N17.9 - ACUTE KIDNEY FAILURE, UNSPECIFIED Status: Acute - Plan Has edema, got one low dose lasix, sbp around 90-100, is on dopamine low dose last 24hrs urine output is 730mls, has gained around 9 lbs from admission. she got diagnosed with right leg massive dvt on 02/13 and was sent to rehab to recuperate is s/p iliofemoral embolectomy likely caused by afib 02/20 right LE edema from massive dvt is receding now, has prior ivc filter as well. is on eliquis, lipitor, digoxin, fentanyl prn PT to mobilize as tolerated I have discussed code status and she wants to have everything done, she was functional before, was gardening and ambulating wo assistive devices (used to sit for 2 hr stretches in between to watch tv) creatinine around 2 with increase in bun. prognosis guarded, needs to mobilze before severe deconditioning sets in, e ncouraged to exercise while on bed high protein diet may give more alb infusions if needed to keep her sbp up, her baseline sbp is never below 130 per patient.
--- NOTE | 2020-02-24 14:56 | PDOC.PALCO ---
Palliative Care Consult - Consult Details Requesting Physician: Dr Nuñez Reason for Consult: goals of care, advance directives assistance, family support, complex decision-making - Pertinent HPI Ms Allan was living in an independent home setting prior to presentation to [facility] emergency room on a recent admission and was discharged to [facility] for therapy and goal to gain strength secondary to weakness and swelling in her legs related to DVT. As stated was sent to rehab and Eliquis was initiated. Increase in pain with numbness and swelling and ischemia to right lower extremity resulted in transfer to [facility] emergency room for evaluati on. Subsequent admission to CCU. S/P embolectomy for substantial thrombus to right lower extremity which resulted in injury to kidney and experiencing acute on chronic kidney disease. Central line placed today to left groin. 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 Sleeping but arousable. Denies any shortness of breath or specific complaints - ROS Constitutional: weakness ENT: other (Denies difficulity swallowing, throat irritation) Respiratory: other (Negative for cough, congestion) Cardiology: other (negative for palpitation, chest pain) Gastrointestinal: other (Negative for nausea, vomiting) Musculoskeletal: arthritis/arthralgias - Objective Vital Signs: Vital Signs - Most Recent Temp Pulse Resp BP Pulse Ox 98.3 F 109 H 16 92/50 L 99 02/24/20 08:00 02/24/20 08:23 02/21/20 15:15 02/21/20 17:00 02/24/20 08:00 Palliative Performance Scale: 40 - Physical Exam Constitutional: ill appearing HEENT: EOMI, moist MMs, sclera anicteric Respiratory: no rhonchi, no wheezing, unlabored breathing Cardiovascular: no significant murmur, irregular Gastrointestinal: soft, non-tender Genitourinary: robles catheter Musculoskeletal: edema present Deviation from normal: Edema more pronounced to right lower Neurology: no focal deficits Skin: fragile Psychiatric: A&O x 3, normal mood - Problem List (1) Palliative care encounter Code(s): Z51.5 - ENCOUNTER FOR PALLIATIVE CARE Current Visit: Yes Status: Alon godfrey (2) ISMAEL (acute kidney injury) Code(s): N17.9 - ACUTE KIDNEY FAILURE, UNSPECIFIED Current Visit: Yes Status: Acute (3) Deep vein thrombosis (DVT) of right lower extremity Code(s): I82.401 - ACUTE EMBOLISM AND THOMBOS UNSP DEEP VEINS OF R LOW EXTREM Current Visit: Yes Status: Acute Qualifiers: Affected thrombotic vein of extremity: femoral Chronicity: acute Qualified Code(s): I82.411 - Acute embolism and thrombosis of right femoral vein (4) Afib Code(s): I48.91 - UNSPECIFIED ATRIAL FIBRILLATION Current Visit: Yes Status: Chronic Qualifiers: Atrial fibrillation type: paroxysmal Qualified Code(s): I48.0 - Paroxysmal atrial fibrillation (5) Chronic kidney disease (CKD) Code(s): N18.9 - CHRONIC KIDNEY DISEASE, UNSPECIFIED Current Visit: Yes Status: Chronic Qualifiers: Chronic kidney disease stage: stage 3 (moderate) (6) Hypertension Code(s): I10 - ESSENTIAL (PRIMARY) HYPERTENSION Current Visit: Yes Status: Chronic Qualifiers: Hypertension type: essential hypertension Qualified Code(s): I10 - Essential (primary) hypertension - Plan/Recommendations Plan: Palliative Care met with patient and communicated with one of three daughters, introduced palliative care. Initial conversation in relation to disease processes and introduced Advanced Directives. Palliative Care attempting to coordinate a time 02/24 for patient and daughters to meet to revisit resuscitation status, disease processes and look at patient Goal of Care. Communicated with Dr Nuñez. [50] minutes spent on this encounter with >50% of the time in counseling and coordination of care. Thank you for this very appropriate consult.
--- NOTE | 2020-02-24 15:59 | PRG ---
DATE OF SERVICE: 02/24/2020 SUBJECTIVE: Ms. Allan has no complaints. Pressure is still running in the 80 to 90 range. It is over 100 some times this morning. She is on a low-dose dopamine. OBJECTIVE: LUNGS: Clear. HEART: Regular rhythm. ABDOMEN: Soft. EXTREMITIES: Feet are warm. IMPRESSION: 1. Relative hypotension after an operative procedure. 2. Atrial fibrillation. Adrenal insufficiency was ruled out with a high cortisol level. It could be that she needs a little vasopressin. We will try some salt-poor albumin to see if that helps. Hopefully, she will wean off pressors here in the near future. Job ID: [id number]
[2020-02-24] MEDS: traMADol HCl 50 MG TAB PO PRN (16:30)
[2020-02-24] MEDS ORDERED: Midodrine HCl 5 MG TAB PO SCH (17:15)
--- NOTE | 2020-02-24 19:51 | PRG ---
DATE OF SERVICE: 02/24/2020 SUBJECTIVE: The patient is seen and examined today, in no significant distress, noted with the following vital signs. OBJECTIVE: VITAL SIGNS: Blood pressure 119/53, with a pulse of 108, respiratory rate of 12, O2 saturation 100%. HEENT: Unremarkable. CARDIOVASCULAR SYSTEM: First and second heart sounds were heard. RESPIRATORY SYSTEM: Clear to auscultation. DIGESTIVE SYSTEM: Revealed a benign abdomen. EXTREMITIES: Mild peripheral edema. LABORATORY INVESTIGATION: Showed a white count of 17,100. Chemistry showed a BUN of 65 with a creatinine of 2.21, that was yesterday. No lab was drawn today. IMPRESSION: 1. Acute kidney injury, hemodynamically mediated in the context of hypotension compounded by possible contrast nephropathy. 2. Atrial fibrillation. PLAN: 1. We will continue current renal supportive measures. 2. Renally dose all medications. 3. Further management to be dependent on the clinical course. 4. We will re-evaluate the renal function tomorrow through clinical laboratory investigation. Job ID: [id number]
[2020-02-24] MEDS: Atorvastatin Calcium 40 MG TAB PO SCH (21:04)
[2020-02-24] MEDS: Midodrine HCl 5 MG TAB PO SCH (21:05)
[2020-02-25 08:34] LABS: #Lymphocytes 1.2 thou/uL (1.20-3.40); #Monocytes 1.6 thou/uL (0.11-0.59); %Basophils 0.1 % (0.0-1.0); %Eosinophils 0.3 % (0.0-10.0); %Lymphocytes 10.8 % (21.0-51.0); %Monocytes 14.5 % (0.0-10.0); %Neutrophils 74.3 % (42.0-75.0); Hemoglobin 7.9 g/dL (12.0-16.0); Mean Corpuscular HGB CONC 32.2 g/dL (32.0-36.0); Mean Corpuscular Hemoglobin 29.5 pg (27.0-31.0); Mean Corpuscular Volume 91.7 fL (78.0-98.0); Mean Platelet Volume 7.5 fL (7.4-10.4); Platelet Count 232 thou/uL (130-400); RBC Distribution Width 12.9 % (11.5-14.5); Red Blood Cell (RBC) Count 2.68 mill/uL (4.20-5.40); White Blood Cell (WBC) Count 10.8 thou/uL (4.8-10.8)
[2020-02-25 08:41] LABS: Anion Gap 11 mmol/L (10-20); BUN (Urea Nitrogen) 57 mg/dL (9.8-20.1); Calc. Creatinine Clearance 42 mL/min (70-130); Calcium 8.4 mg/dL (7.8-10.44); Carbon Dioxide 24 mmol/L (23-31); Chloride 105 mmol/L (98-107); Estimated GFR-MDRD 41; Glucose 131 mg/dL (83-110); Potassium 4.4 mmol/L (3.5-5.1); Sodium 136 mmol/L (136-145)
[2020-02-25] MEDS: Sodium Chloride 0.9% 1,000 ML IV SCH (09:17)
[2020-02-25] MEDS ORDERED: Furosemide 20 MG/2 ML VIAL SLOW IVP SCH (09:45)
--- NOTE | 2020-02-25 09:57 | PRG ---
DATE OF SERVICE: 02/25/2020 SUBJECTIVE: Ms. Allan says she is feeling weaker. She has been in bed for several days now. OBJECTIVE: VITAL SIGNS: Blood pressure is 100 systolic. She is on low-dose dopamine. Pulse is 80 to 100, it is atrial fibrillation. LUNGS: Clear. CARDIAC: Irregularly irregular. ABDOMEN: Soft and nontender. EXTREMITIES: There is moderate to severe edema. DIAGNOSTIC STUDIES: EKG from the did show T-wave inversion anterolaterally. This could be ischemia, could be digoxin effect. Kidney function has improved. Creatinine is down, improved to 1.25. ASSESSMENT: 1. Atrial fibrillation, persistent. 2. Status post embolectomy for embolism to her leg from atrial fibrillation. 3. Persistent hypotension. 4. Diastolic heart failure with a BNP of 705. 5. ? underlying coronary artery disease. 6. Renal failure, improved. 7. Anemia. PLAN: 1. Increase Eliquis back to 5 mg twice a day. 2. Vasopressin is being tried to try to get her off the dopamine. 3. She is on low-dose midodrine. 4. Prognosis is guarded. Job ID: [id number]
[2020-02-25] MEDS: Polyethylene Glycol 3350 17 GM Packet PO SCH (10:34)
[2020-02-25] MEDS: Digoxin 0.5 MG/2 ML AMP SLOW IVP SCH (10:34)
[2020-02-25] MEDS: Apixaban 2.5 MG TAB PO SCH ×2 (10:35→21:52)
[2020-02-25] MEDS: Midodrine HCl 5 MG TAB PO SCH ×3 (10:36→21:51)
--- NOTE | 2020-02-25 11:20 | PRG ---
DATE OF SERVICE: 02/25/2020 SUBJECTIVE: Ms. Allan remains on a low dose of dopamine. She is having some ventricular ectopy with that. OBJECTIVE: VITAL SIGNS: Her blood pressure is 106/35, heart rate is 70, respiratory rate is in the 20s. GENERAL: She has no complaints. LUNGS: Clear. HEART: Regular rhythm. ABDOMEN: Soft. LABORATORY DATA: White count 10.8, hemoglobin 7.9, platelets 232. Creatinine is 1.25 today, down from 2.2 two days ago. IMPRESSION: 1. Status post embolectomy from an iliofemoral clot brought on by atrial fibrillation. 2. Deep venous thrombosis, that was an incidental finding with arterial obstruction. 3. History of nephrectomy in the past with improving renal function. 4. Atrial fibrillation. 5. Persistent hypotension. She does not have adrenal insufficiency by lab work. We will try low-dose of vasopressin today and see if we can wean her off the dopamine. 6. We will continue with critical care management. Follow with other physicians. Job ID: [id number]
--- NOTE | 2020-02-25 13:23 | PDOC.HOSPP ---
- Subjective Encounter Date: 02/25/20 Encounter Time: 12:30 - Objective Vital Signs & Weight: Vital Signs (12 hours) Temp Pulse 02/25/20 10:34 84 02/25/20 04:00 98.6 F Weight Admit Weight 166 lb Weight 176 lb 5.917 oz Most Recent Monitor Data Heart Rate from ECG 64 NIBP 105/52 NIBP BP-Mean 82 Respiration from ECG 22 SpO2 98 I&O: 02/24/20 02/25/20 02/26/20 06:59 06:59 06:59 Intake Total 2803.6 1783.4 Output Total 730 990 Balance 2073.6 793.4 Result Diagrams: 02/25/20 07:58 02/25/20 07:58 Hospitalist ROS - Medication Medications: Active Medications Generic Name Dose Route Start Last Admin Trade Name Freq PRN Reason Stop Dose Admin Acetaminophen 650 mg 02/19/20 15:46 02/23/20 02:17 Acetaminophen 325 Mg Tab PO 325 mg Q6H PRN Administration Headache/Fever/Mild Pain (1-3) Hydrocodone Bitart/Acetaminophen 1 tab 02/23/20 02:01 02/23/20 02:16 Hydrocodone/Acetaminophen 5/325 Mg Tablet PO 1 tab Q4H PRN Administration Mild-Moderate Pain (1-5) Alprazolam 0.25 mg 02/19/20 15:55 02/20/20 20:52 Alprazolam 0.25 Mg Tab PO 0.25 mg HS PRN Administration Insomnia Atorvastatin Calcium 40 mg 02/19/20 21:00 02/24/20 21:04 Atorvastatin Calcium 40 Mg Tab PO 40 mg HS MELY Administration Digoxin 0.125 mg 02/24/20 09:00 02/25/20 10:34 Digoxin 0.5 Mg/2 Ml Amp SLOW IVP 0.125 mg DAILY MELY Administration Fentanyl 25 mcg 02/21/20 08:39 02/21/20 09:08 Fentanyl 100 Mcg/2 Ml Vial SLOW IVP 25 mcg Q4H PRN Administration Mild-Moderate Pain (1-5) Dopamine HCl/Dextrose 250 mls @ 7.481 mls/hr 02/23/20 17:15 02/24/20 14:08 Dopamine 400 Mg/D5w 250 Ml IVPB 250 mls INF MELY Administration Protocol 2.5 MCG/KG/MIN Vasopressin 20 unit/ Sodium 51 mls @ 3 mls/hr 02/25/20 08:15 02/25/20 09:17 Chloride IV 51 mls INF MELY Administration Midodrine 2.5 mg 02/24/20 21:00 02/25/20 10:36 Midodrine Hcl 5 Mg Tab PO 2.5 mg TID MELY Administration Polyethylene Glycol 17 gm 02/20/20 09:00 02/25/20 10:34 Polyethylene Glycol 3350 17 Gm Packet PO 17 gm DAILY MELY Administration Tramadol HCl 50 mg 02/19/20 16:45 02/24/20 16:30 Tramadol Hcl 50 Mg Tab PO 50 mg Q12H PRN Administration Mild-Moderate Pain (1-5) - Exam General Appearance: awake alert Eye: anicteric sclera ENT: no oropharyngeal lesions, moist mucosa Neck: supple, no JVD Heart: no murmur, irregular Respiratory: no wheezes, no ronchi, rales Gastrointestinal: soft, non-tender, non-distended, normal bowel sounds Extremities: no cyanosis, 2+ LE edema Neurological: cranial nerve grossly intact, no focal deficits Psychiatric: normal affect, A&O x 3 Hosp A/P (1) Ischemia of right lower extremity Code(s): I99.8 - OTHER DISORDER OF CIRCULATORY SYSTEM Status: Acute (2) Deep vein thrombosis (DVT) of right lower extremity Code(s): I82.401 - ACUTE EMBOLISM AND THOMBOS UNSP DEEP VEINS OF R LOW EXTREM Status: Acute Qualifiers: Affected thrombotic vein of extremity: femoral Chronicity: acute Q ualified Code(s): I82.411 - Acute embolism and thrombosis of right femoral vein (3) Afib Code(s): I48.91 - UNSPECIFIED ATRIAL FIBRILLATION Status: Chronic Qualifiers: Atrial fibrillation type: paroxysmal Qualified Code(s): I48.0 - Paroxysmal atrial fibrillation (4) Chronic kidney disease (CKD) Code(s): N18.9 - CHRONIC KIDNEY DISEASE, UNSPECIFIED Status: Chronic Qualifiers: Chronic kidney disease stage: stage 3 (moderate) (5) Dyslipidemia Code(s): E78.5 - HYPERLIPIDEMIA, UNSPECIFIED Status: Chronic (6) Hypertension Code(s): I10 - ESSENTIAL (PRIMARY) HYPERTENSION Status: Chronic Qualifiers: Hypertension type: essential hypertension Qualified Code(s): I10 - E ssential (primary) hypertension (7) ISMAEL (acute kidney injury) Code(s): N17.9 - ACUTE KIDNEY FAILURE, UNSPECIFIED Status: Acute - Plan Has edema, sbp around 90-100, is on dopamine low dose and will get switched over to vasopressin per staff last 24hrs urine output is 1 ltr, has gained around 10 lbs from admission. she got diagnosed with right leg massive dvt on 02/13 and was sent to rehab to recuperate is s/p iliofemoral embolectomy likely caused by afib 02/20 right LE edema from massive dvt is receding now, has prior ivc filter as well. is on eliquis, lipitor, digoxin, fentanyl prn PT to mobilize as tolerated I have discussed code status and she wants to have everything done, she was functional before, was gardening and ambulating wo assistive devices (used to sit for 2 hr stretches in between to watch tv) renal function is slowly returning to baseline. prognosis guarded, needs to mobilze before severe deconditioning sets in, encouraged to exercise while on bed high protein diet may give more alb infusions if needed to keep her sbp up, her baseline sbp is never below 130 per patient. d/w daughter at bedside and gave an update
--- NOTE | 2020-02-25 13:23 | EKG ---
Test Reason : Blood Pressure : / mmHG Vent. Rate : 093 BPM Atrial Rate : 120 BPM P-R Int : 000 ms QRS Dur : 068 ms QT Int : 362 ms P-R-T Axes : 000 -13 -58 degrees QTc Int : 450 ms Atrial fibrillation Low voltage QRS Nonspecific ST and T wave abnormality , probably digitalis effect Abnormal ECG Confirmed by DR. Ita FUNK ([id number]) on 02/25/2020 1:23:19 PM Referred By: JOANNE Confirmed By:DR. Ita FUNK
[2020-02-25] MEDS: Atorvastatin Calcium 40 MG TAB PO SCH (21:52)
[2020-02-26 05:58] LABS: #Lymphocytes 0.8 thou/uL (1.20-3.40); #Monocytes 1.3 thou/uL (0.11-0.59); #Neutrophils 6.7 thou/uL (1.40-6.50); %Basophils 0.2 % (0.0-1.0); %Eosinophils 0.2 % (0.0-10.0); %Lymphocytes 9.3 % (21.0-51.0); %Monocytes 14.2 % (0.0-10.0); %Neutrophils 76.1 % (42.0-75.0); Hemoglobin 6.9 g/dL (12.0-16.0); Mean Corpuscular HGB CONC 33.1 g/dL (32.0-36.0); Mean Corpuscular Hemoglobin 29.7 pg (27.0-31.0); Mean Corpuscular Volume 89.9 fL (78.0-98.0); Mean Platelet Volume 7.4 fL (7.4-10.4); Platelet Count 198 thou/uL (130-400); Red Blood Cell (RBC) Count 2.32 mill/uL (4.20-5.40); White Blood Cell (WBC) Count 8.8 thou/uL (4.8-10.8)
[2020-02-26 06:39] LABS: Anion Gap 9 mmol/L (10-20); BUN (Urea Nitrogen) 50 mg/dL (9.8-20.1); Calc. Creatinine Clearance 51 mL/min (70-130); Calcium 8.1 mg/dL (7.8-10.44); Carbon Dioxide 29 mmol/L (23-31); Chloride 104 mmol/L (98-107); Estimated GFR-MDRD 52; Glucose 138 mg/dL (83-110); Potassium 4.6 mmol/L (3.5-5.1); Sodium 137 mmol/L (136-145)
[2020-02-26] MEDS: Digoxin 0.5 MG/2 ML AMP SLOW IVP SCH (08:40)
[2020-02-26] MEDS: Midodrine HCl 5 MG TAB PO SCH ×3 (08:40→21:04)
[2020-02-26] MEDS: Polyethylene Glycol 3350 17 GM Packet PO SCH (08:40)
--- NOTE | 2020-02-26 08:52 | PRG ---
DATE OF SERVICE: 02/26/2020 SUBJECTIVE: The patient is doing well this morning. She was weaned off the vasopressin drip and her blood pressure has held steady. OBJECTIVE: VITAL SIGNS: Temperature 98.8, pulse 117, blood pressure 115/38, O2 saturation 100%. 24-hour intake 1016, output 2144. HEENT: Unremarkable. NECK: No adenopathy or JVD. LUNGS: Clear to auscultation. CARDIAC: S1 and S2. Regular. ABDOMEN: Soft and nontender. She has bruising above her labia. She has a left femoral central line. LABORATORY DATA: White blood cell count 8.8, hematocrit 20.8, and platelet count 198. Sodium 137, potassium 4.6, chloride 104, CO2 of 29, BUN , creatinine 1.0, and glucose 138. ASSESSMENT: 1. Status post embolectomy. 2. Atrial fibrillation. 3. Deep venous thrombosis. 4. History of nephrectomy. 5. Persistent hypotension-with the development of anemia. I wonder if we are looking at a situation of occult blood loss such as a retroperitoneal hematoma. PLAN: 1. I am going to get a CT of the abdomen and pelvis without contrast to rule out retroperitoneal blood. 2. She will need blood transfusion. 3. We will need to hold on transfer for now. Job ID: [id number]
[2020-02-26] MEDS ORDERED: Furosemide 20 MG/2 ML VIAL SLOW IVP SCH (09:00)
--- NOTE | 2020-02-26 10:31 | CT ---
CT Abdomen Pelvis WO Con 02/26/2020 9:40 AM HISTORY: Anemia. Evaluate for retroperitoneal bleed. COMPARISON: CTA abdomen and pelvis on 02/19/2020 Technique: Multiple contiguous axial CT images are obtained through the abdomen and pelvis without IV contrast. Coronal reformats are provided. FINDINGS: This examination is limited for the evaluation of solid organs and vascular structures due to the lac k of intravenous contrast. Lower Chest: Small right pleural effusion is present which has increased when compared to study on . Liver: Grossly normal non-enhanced CT appearance. Gallbladder: Surgically absent. Pancreas: Grossly normal nonenhanced CT appearance. Spleen: Grossly normal nonenhanced CT appearance. Adrenals: Right adrenal gland demonstrates normal nonenhanced CT appearance. Left adrenal gland is no t well assessed given postoperative changes in this region as well as vascular calcifications. Kidneys, ureters, urinary bladder: Evidence of left nephrectomy. Inferior pole right renal cyst is ag ain seen. There is mild right hydronephrosis and hydroureter present. No ureteral calculus is visualized. Urinary bladder is decompressed with Javed catheter in place. Reproductive Organs: Evidence of hysterectomy. Lymph Nodes: No enlarged lymph nodes. Bowel: Evidence of colonic diverticulosis with increased density material in the descending colon whi ch could be related to either prior contrasted study or secondary to ingestion of bismuth type material. Appendix: Normal in caliber where visualized. Peritoneum/retroperitoneum: There is trace amount of free fluid in the pelvis and along the right hem ipelvis with associated stranding and minimal increased density stranding. There is a 5 cm craniocaudal x5.6 cm transverse x3.6 cm AP increased density masslike structure in the right inguinal region adjacent to the femoral vessels and adjacent to multiple surgical clips in this region. Findings are likely related to a hematoma in the right inguinal region with partial extension into th e anterolateral right pelvis. There is prominent stranding and additional areas of increased density within the subcutaneous soft tissues right anterior pelvis. Vessels: Vascular calcifications are seen in the abdominal aorta and iliac arteries. IVC filter is ag ain noted in place. A left common femoral vein central venous catheter is noted in place. Abdominal Wall: Subcutaneous edema is seen about the anterolateral aspects of the pelvis bilaterally and in each gluteal region and extending into the proximal aspects of the lower extremities. Bones: Right convex scoliosis lumbar spine. Degenerative change seen in the spine with bilateral hip osteoarthritis. IMPRESSION: 1. Evidence of a hematoma in the right inguinal region adjacent to the femoral vessels with small velia unt of hemorrhage extending into the right anterolateral aspect of the pelvis as well as small amount of hemorrhage in the subcutaneous soft tissues just lateral to the hematoma. This hematoma is in region of multiple surgical clips. 2. Interval enlargement of a small right pleural effusion compared to prior study. 3. Mild right hydronephrosis and hydroureter of uncertain etiology. Javed catheter is present in a de compressed urinary bladder. 4. No other interval change compared to the CTA abdomen and pelvis.
[2020-02-26] MEDS: Apixaban 2.5 MG TAB PO SCH ×2 (12:00→21:04)
--- NOTE | 2020-02-26 12:34 | PDOC.CPN ---
- Subjective Date: 02/26/20 Time: 12:32 Interval history: She denies chest pain but has noticed yesterday she felt very energetic and that is not the case today. No chest pain. - Review of Systems General: reports: fatigue. denies: fever/chills, weight/appetite/sleep changes, night sweats Respiratory: denies: cough, congestion, shortness of breath, exercise intolerance Cardiovascular: denies: chest pain, palpitation, edema, paroxysmal nocturnal dyspnea, orthopnea Gastrointestinal: denies: nausea, vomiting, diarrhea, constipation, abd pain, GI bleeding Musculoskeletal: denies: pain, tenderness, stiffness, swelling, arthritis/arthralgias Neurological: denies: numbness, syncope, seizure, weakness - Objective Allergies/Adverse Reactions: Allergies Allergy/AdvReac Type Severity Reaction Status Date / Time Sulfa (Sulfonamide Allergy Verified 02/19/20 15:05 Antibiotics) Visit Medications: Current Medications Acetaminophen (Acetaminophen 325 Mg Tab) 650 mg PO Q6H PRN PRN Reason: Headache/Fever/Mild Pain (1-3) Last Admin: 02/23/20 02:17 Dose: 325 mg Documented by: Hydrocodone Bitart/Acetaminophen (Hydrocodone/Acetaminophen 5/325 Mg Tablet) 1 tab PO Q4H PRN PRN Reason: Mild-Moderate Pain (1-5) Last Admin: 02/23/20 02:16 Dose: 1 tab Documented by: Alprazolam (Alprazolam 0.25 Mg Tab) 0.25 mg PO HS PRN PRN Reason: Insomnia Last Admin: 02/20/20 20:52 Dose: 0.25 mg Documented by: Apixaban (Apixaban 2.5 Mg Tab) 5 mg PO BID [facility] Last Admin: 02/26/20 12:00 Dose: 5 mg Documented by: Atorvastatin Calcium (Atorvastatin Calcium 40 Mg Tab) 40 mg PO HS [facility] Last Admin: 02/25/20 21:52 Dose: 40 mg Documented by: Digoxin (Digoxin 0.5 Mg/2 Ml Amp) 0.125 mg SLOW IVP DAILY [facility] Last Admin: 02/26/20 08:40 Dose: 0.125 mg Documented by: Fentanyl (Fentanyl 100 Mcg/2 Ml Vial) 25 mcg SLOW IVP Q4H PRN PRN Reason: Mild-Moderate Pain (1-5) Last Admin: 02/21/20 09:08 Dose: 25 mcg Documented by: Fentanyl (Fentanyl 100 Mcg/2 Ml Vial) 50 mcg SLOW IVP Q4H PRN PRN Reason: Moderate to Severe Pain (6-10) Furosemide (Furosemide 20 Mg/2 Ml Vial) 20 mg SLOW IVP DAILY [facility] Last Admin: 02/26/20 08:40 Dose: 20 mg Documented by: Midodrine (Midodrine Hcl 5 Mg Tab) 2.5 mg PO TID [facility] Last Admin: 02/26/20 08:40 Dose: 2.5 mg Documented by: Polyethylene Glycol (Polyethylene Glycol 3350 17 Gm Packet) 17 gm PO DAILY [facility] Last Admin: 02/26/20 08:40 Dose: 17 gm Documented by: Sodium Chloride (Flush - Normal Saline 10 Ml Syringe) 10 ml IVF PRN PRN PRN Reason: Saline Flush Tramadol HCl (Tramadol Hcl 50 Mg Tab) 50 mg PO Q12H PRN PRN Reason: Mild-Moderate Pain (1-5) Last Admin: 02/24/20 16:30 Dose: 50 mg Documented by: Vital Signs & Weight: Vital Signs Temp Pulse Pulse Ox 02/26/20 08:40 84 02/26/20 08:29 99 02/26/20 08:00 98.5 F 100 02/26/20 04:00 98.8 F 02/26/20 02:18 100 Admit Weight 166 lb Weight 176 lb 5.917 oz - Physical Exam General: alert & oriented x3 HEENT: mucus membranes moist Neck: supple neck Cardiac: irregularly regular Lungs: normal breath sounds Neuro: no lateralizing findings Abdomen: active bowel sounds Extremities: no edema Skin: clear Musculoskeletal: no pain - Labs Result Diagrams: 02/26/20 05:45 02/26/20 05:45 Troponin/CKMB Troponin I 0.048 ng/mL (< 0.028) H 02/22/20 12:54 - Telemetry Supraventricular conduction: atrial fibrillation - Assessment/Plan Assessment/Plan: 1. persistent Afib, rate cotnrolled 2. S/P embolectomy to leg 2a to afib 3. Acute blood loss anemia 4. Hypotension likely secondary to anemia 5. Possible underlying coromnary disease. 6. ISMAEL on CKD, improved. PLAN: - Transfuse to close to 10. - Continue Eliquis - Hopefully her BP will improve with blood transfusion. - Hematoma on groin likely cause. No evidence of retroperitoneal hematoma. - Will hold lasix for today.
--- NOTE | 2020-02-26 13:00 | PDOC.HOSPP ---
- Subjective Encounter Date: 02/26/20 Encounter Time: 08:40 Subjective: c/o sob, no chest pain has not had bm x 4 days now, no nausea no abd pain still has difficulty to dorsiflex her right ankle (Gregorio's from dvt?) - Objective Vital Signs & Weight: Vital Signs (12 hours) Temp Pulse Pulse Ox 02/26/20 08:40 84 02/26/20 08:29 99 02/26/20 08:00 98.5 F 100 02/26/20 04:00 98.8 F 02/26/20 02:18 100 Weight Admit Weight 166 lb Weight 176 lb 5.917 oz Most Recent Monitor Data Heart Rate from ECG 94 NIBP 109/49 NIBP BP-Mean 70 Respiration from ECG 28 SpO2 100 I&O: 02/25/20 02/26/20 02/27/20 06:59 06:59 06:59 Intake Total 1783.4 1016.3 0 Output Total 990 2144 655 Balance 793.4 -1127.7 -655 Result Diagrams: 02/26/20 05:45 02/26/20 05:45 Hospitalist ROS - Medication Medications: Active Medications Generic Name Dose Route Start Last Admin Trade Name Freq PRN Reason Stop Dose Admin Acetaminophen 650 mg 02/19/20 15:46 02/23/20 02:17 Acetaminophen 325 Mg Tab PO 325 mg Q6H PRN Administration Headache/Fever/Mild Pain (1-3) Hydrocodone Bitart/Acetaminophen 1 tab 02/23/20 02:01 02/23/20 02:16 Hydrocodone/Acetaminophen 5/325 Mg Tablet PO 1 tab Q4H PRN Administration Mild-Moderate Pain (1-5) Alprazolam 0.25 mg 02/19/20 15:55 02/20/20 20:52 Alprazolam 0.25 Mg Tab PO 0.25 mg HS PRN Administration Insomnia Apixaban 5 mg 02/25/20 21:00 02/26/20 12:00 Apixaban 2.5 Mg Tab PO 5 mg BID MELY Administration Atorvastatin Calcium 40 mg 02/19/20 21:00 02/25/20 21:52 Atorvastatin Calcium 40 Mg Tab PO 40 mg HS MELY Administration Digoxin 0.125 mg 02/24/20 09:00 02/26/20 08:40 Digoxin 0.5 Mg/2 Ml Amp SLOW IVP 0.125 mg DAILY MELY Administration Fentanyl 25 mcg 02/21/20 08:39 02/21/20 09:08 Fentanyl 100 Mcg/2 Ml Vial SLOW IVP 25 mcg Q4H PRN Administration Mild-Moderate Pain (1-5) Midodrine 2.5 mg 02/24/20 21:00 02/26/20 08:40 Midodrine Hcl 5 Mg Tab PO 2.5 mg TID MELY Administration Polyethylene Glycol 17 gm 02/20/20 09:00 02/26/20 08:40 Polyethylene Glycol 3350 17 Gm Packet PO 17 gm DAILY MELY Administration Tramadol HCl 50 mg 02/19/20 16:45 02/24/20 16:30 Tramadol Hcl 50 Mg Tab PO 50 mg Q12H PRN Administration Mild-Moderate Pain (1-5) - Exam General Appearance: awake alert Eye: PERRL, anicteric sclera ENT: no oropharyngeal lesions, moist mucosa Neck: supple, no JVD Heart: RRR, no murmur Respiratory: no wheezes, no ronchi, rales Gastrointestinal: soft, non-tender, normal bowel sounds, no guarding, no rigidity Extremities: no cyanosis, 1+ LE edema Extremities - other findings: right foot is warm and no signs of cyanosis Neurological: cranial nerve grossly intact, no focal deficits Psychiatric: normal affect, A&O x 3 Hosp A/P (1) Ischemia of right lower extremity Code(s): I99.8 - OTHER DISORDER OF CIRCULATORY SYSTEM Status: Resolved (2) Deep vein thrombosis (DVT) of right lower extremity Code(s): I82.401 - ACUTE EMBOLISM AND THOMBOS UNSP DEEP VEINS OF R LOW EXTREM Status: Acute Qualifiers: Affected thrombotic vein of extremity: femoral Chronicity: acute Qualified Code(s): I82.411 - Acute embolism and thrombosis of right femoral vein (3) Afib Code(s): I48.91 - UNSPECIFIED ATRIAL FIBRILLATION Status: Chronic Qualifiers: Atrial fibrillation type: paroxysmal Qualified Code(s): I48.0 - Paroxysmal atrial fibrillation (4) Chronic kidney disease (CKD) Code(s): N18.9 - CHRONIC KIDNEY DISEASE, UNSPECIFIED Status: Chronic Qualifiers: Chronic kidney disease stage: stage 3 (moderate) (5) Dyslipidemia Code(s): E78.5 - HYPERLIPIDEMIA, UNSPECIFIED Status: Chronic (6) Hypertension Code(s): I10 - ESSENTIAL (PRIMARY) HYPERTENSION Status: Chronic Qualifiers: Hypertension type: essential hypertension Qualified Code(s): I10 - Essential (primary) hypertension (7) ISMAEL (acute kidney injury) Code(s): N17.9 - ACUTE KIDNEY FAILURE, UNSPECIFIED Status: Acute - Plan drop in Hb this am, to get 1 u prbc, will repeat H/H around 4pm and transfuse as needed, has sob at rest and is on O2 now. will stop eliquis if she continues to drop her h/h, needs eliquis for large dvt, has filter if we need to stop it anyway. is off pressors now, sbp around 110 last 24hrs urine output is 2100, has gained around 10 lbs from admission. she got diagnosed with right leg massive dvt on 02/13 and was sent to rehab to recuperate is s/p iliofemoral embolectomy likely caused by afib 02/20 right LE edema from massive dvt is receding now, has prior ivc filter as well. is on eliquis, lipitor, digoxin, fentanyl prn PT to mobilize as tolerated I have discussed code status and she wants to have everything done, she was functional before, was gardening and ambulating wo assistive devices (used to sit for 2 hr stretches in between to watch tv) renal function is slowly returning to baseline. prognosis guarded, needs to mobilze before severe deconditioning sets in, encouraged to exercise while on bed high protein diet
[2020-02-26 16:09] LABS: Hemoglobin 9.1 g/dL (12.0-16.0); Mean Corpuscular HGB CONC 32.1 g/dL (32.0-36.0); Mean Corpuscular Hemoglobin 28.9 pg (27.0-31.0); Mean Platelet Volume 7.3 fL (7.4-10.4); Platelet Count 238 thou/uL (130-400); RBC Distribution Width 13.8 % (11.5-14.5); Red Blood Cell (RBC) Count 3.14 mill/uL (4.20-5.40); White Blood Cell (WBC) Count 11.9 thou/uL (4.8-10.8)
--- NOTE | 2020-02-26 19:02 | PRG ---
DATE OF SERVICE: 02/26/2020 SUBJECTIVE: The patient is seen and examined today. Seems to be doing much better. Noted with the following vital signs. OBJECTIVE: VITAL SIGNS: Afebrile, blood pressure 121/47, pulse of 73 to 90, respiratory rate of 20, O2 saturation 100%. HEENT: Unremarkable. CARDIOVASCULAR SYSTEM: First and second heard sounds were heard. RESPIRATORY SYSTEM: Clear to auscultation. DIGESTIVE SYSTEM: Revealed a benign abdomen with positive bowel sounds. EXTREMITIES: No peripheral edema. SKIN: No new gross rash. LABORATORY INVESTIGATIONS: Significant for hemoglobin of 6.9. Chemistry showed a creatinine resolved down to 1.01 with BUN of 50. IMPRESSION: 1. Severe anemia, undergoing blood transfusion. 2. Acute kidney injury, which seems to have resolved for a great extent. PLAN: 1. We will continue current renal supportive measures while potentially avoiding nephrotoxic agents. 2. Further management to be dependent on the clinical course. Job ID: [id number]
[2020-02-26] MEDS: Atorvastatin Calcium 40 MG TAB PO SCH (21:04)
[2020-02-27 04:13] LABS: #Eosinphils 0.1 thou/uL (0.0-0.7); #Lymphocytes 1.1 thou/uL (1.20-3.40); #Monocytes 1.6 thou/uL (0.11-0.59); #Neutrophils 7.8 thou/uL (1.40-6.50); %Basophils 0.2 % (0.0-1.0); %Eosinophils 0.6 % (0.0-10.0); %Lymphocytes 10.2 % (21.0-51.0); %Monocytes 14.8 % (0.0-10.0); %Neutrophils 74.3 % (42.0-75.0); Hemoglobin 8.9 g/dL (12.0-16.0); Mean Corpuscular HGB CONC 33.7 g/dL (32.0-36.0); Mean Corpuscular Volume 89.1 fL (78.0-98.0); Mean Platelet Volume 8.2 fL (7.4-10.4); Platelet Count 262 thou/uL (130-400); RBC Distribution Width 13.8 % (11.5-14.5); Red Blood Cell (RBC) Count 2.95 mill/uL (4.20-5.40); White Blood Cell (WBC) Count 10.5 thou/uL (4.8-10.8)
[2020-02-27 04:31] LABS: Anion Gap 12 mmol/L (10-20); BUN (Urea Nitrogen) 41 mg/dL (9.8-20.1); Calc. Creatinine Clearance 63 mL/min (70-130); Calcium 8.2 mg/dL (7.8-10.44); Carbon Dioxide 29 mmol/L (23-31); Chloride 104 mmol/L (98-107); Estimated GFR-MDRD 66; Glucose 114 mg/dL (83-110); Potassium 4.5 mmol/L (3.5-5.1); Sodium 140 mmol/L (136-145)
[2020-02-27] MEDS: Midodrine HCl 5 MG TAB PO SCH ×3 (09:09→19:42)
[2020-02-27] MEDS: Apixaban 2.5 MG TAB PO SCH ×2 (09:09→19:42)
[2020-02-27] MEDS: Furosemide 20 MG TAB PO SCH ×2 (09:09→14:59)
[2020-02-27] MEDS: Polyethylene Glycol 3350 17 GM Packet PO SCH (09:10)
[2020-02-27] MEDS: Digoxin 0.125 MG TAB PO SCH (09:10)
[2020-02-27] MEDS ORDERED: Bisacodyl 10 MG SUPP PR PRN (09:45)
--- NOTE | 2020-02-27 11:41 | PDOC.HOSPP ---
- Subjective Encounter Date: 02/27/20 Encounter Time: 09:45 Subjective: has not passed stool and is getting worried, she feels that its close to coming out no nausea has some right foot pain - Objective Vital Signs & Weight: Vital Signs (12 hours) Temp Pulse Resp BP Pulse Ox 02/27/20 09:10 87 02/27/20 08:00 97.6 F 87 16 110/53 L 98 02/27/20 03:25 98.3 F 88 15 136/63 98 Weight Admit Weight 166 lb Weight 177 lb 11.2 oz Most Recent Monitor Data Heart Rate from ECG 74 NIBP 119/53 NIBP BP-Mean 90 Respiration from ECG 22 SpO2 99 I&O: 02/26/20 02/27/20 02/28/20 06:59 06:59 06:59 Intake Total 1016.3 400 200 Output Total 2144 1240 550 Balance -1127.7 -840 -350 Result Diagrams: 02/27/20 03:26 02/27/20 03:26 Hospitalist ROS - Medication Medications: Active Medications Generic Name Dose Route Start Last Admin Trade Name Freq PRN Reason Stop Dose Admin Acetaminophen 650 mg 02/19/20 15:46 02/23/20 02:17 Acetaminophen 325 Mg Tab PO 325 mg Q6H PRN Administration Headache/Fever/Mild Pain (1-3) Hydrocodone Bitart/Acetaminophen 1 tab 02/23/20 02:01 02/23/20 02:16 Hydrocodone/Acetaminophen 5/325 Mg Tablet PO 1 tab Q4H PRN Administration Mild-Moderate Pain (1-5) Alprazolam 0.25 mg 02/19/20 15:55 02/20/20 20:52 Alprazolam 0.25 Mg Tab PO 0.25 mg HS PRN Administration Insomnia Apixaban 5 mg 02/25/20 21:00 02/27/20 09:09 Apixaban 2.5 Mg Tab PO 5 mg BID MELY Administration Atorvastatin Calcium 40 mg 02/19/20 21:00 02/26/20 21:04 Atorvastatin Calcium 40 Mg Tab PO 40 mg HS MELY Administration Digoxin 0.125 mg 02/27/20 09:00 02/27/20 09:10 Digoxin 0.125 Mg Tab PO 0.125 mg DAILY MELY Administration Fentanyl 25 mcg 02/21/20 08:39 10/19/20 09:08 Fentanyl 100 Mcg/2 Ml Vial SLOW IVP 25 mcg Q4H PRN Administration Mild-Moderate Pain (1-5) Furosemide 20 mg 02/27/20 09:00 02/27/20 09:09 Furosemide 20 Mg Tab PO 20 mg 0900,1400 MELY Administration Midodrine 2.5 mg 02/24/20 21:00 02/27/20 09:09 Midodrine Hcl 5 Mg Tab PO 2.5 mg TID MELY Administration Polyethylene Glycol 17 gm 02/20/20 09:00 02/27/20 09:10 Polyethylene Glycol 3350 17 Gm Packet PO 17 gm DAILY MELY Administration Tramadol HCl 50 mg 02/19/20 16:45 02/24/20 16:30 Tramadol Hcl 50 Mg Tab PO 50 mg Q12H PRN Administration Mild-Moderate Pain (1-5) - Exam General Appearance: awake alert Eye: PERRL, anicteric sclera ENT: no oropharyngeal lesions, moist mucosa Neck: supple, no JVD Heart: no murmur, irregular Respiratory: no wheezes, no rales Gastrointestinal: soft, non-tender, non-distended, normal bowel sounds Extremities: 1+ LE edema Extremities - other findings: right foot is warm, she cant dorsiflex without pain Neurological: cranial nerve grossly intact, no focal deficits Psychiatric: normal affect, A&O x 3 Hosp A/P (1) Ischemia of right lower extremity Code(s): I99.8 - OTHER DISORDER OF CIRCULATORY SYSTEM Status: Resolved (2) Deep vein thrombosis (DVT) of right lower extremity Code(s): I82.401 - ACUTE EMBOLISM AND THOMBOS UNSP DEEP VEINS OF R LOW EXTREM Status: Acute Qualifiers: Affected thrombotic vein of extremity: femoral Chronicity: acute Qualified Code(s): I82.411 - Acute embolism and thrombosis of right femoral vein (3) Afib Code(s): I48.91 - UNSPECIFIED ATRIAL FIBRILLATION Status: Chronic Qualifiers: Atrial fibrillation type: paroxysmal Qualified Code(s): I48.0 - Paroxysmal atrial fibrillation (4) Chronic kidney disease (CKD) Code(s): N18.9 - CHRONIC KIDNEY DISEASE, UNSPECIFIED Status: Chronic Qualifiers: Chronic kidney disease stage: stage 3 (moderate) (5) Dyslipidemia Code(s): E78.5 - HYPERLIPIDEMIA, UNSPECIFIED Status: Chronic (6) Hypertension Code(s): I10 - ESSENTIAL (PRIMARY) HYPERTENSION Status: Chronic Qualifiers: Hypertension type: essential hypertension Qualified Code(s): I10 - Essential (primary) hypertension (7) ISMAEL (acute kidney injury) Code(s): N17.9 - ACUTE KIDNEY FAILURE, UNSPECIFIED Status: Acute - Plan dulcolax [place] q8h prn, fleets if needed afib is rate controlled needs eliquis for large dvt, has filter if we need to stop it anyway. is off pressors from 02/25, sbp around 110 she got diagnosed with right leg massive dvt on 02/13 and was sent to rehab to recuperate is s/p iliofemoral embolectomy likely caused by afib 02/20 right LE edema from massive dvt is receding now, has prior ivc filter as well. is on eliquis, lipitor, digoxin, fentanyl prn PT to mobilize as tolerated I have discussed code status and she wants to have everything done, she was functional before, was gardening and ambulating wo assistive devices (used to sit for 2 hr stretches in between to watch tv) renal function is slowly returning to baseline. prognosis guarded, needs to mobilze before severe deconditioning sets in, encouraged to exercise while on bed high protein diet dc planning, will need rehab?
--- NOTE | 2020-02-27 14:02 | PRG ---
DATE OF SERVICE: 02/27/2020 SUBJECTIVE: The patient feels better today compared to yesterday. She says she wants to get up and walk around. OBJECTIVE: VITAL SIGNS: Temperature is 98.3, pulse 94, respirations 16, O2 saturation 99% on 1 L, and blood pressure 122/64. HEENT: Unremarkable. NECK: No JVD. CARDIAC: S1 and S2. Irregularly irregular. LUNGS: Clear. ABDOMEN: Soft. EXTREMITIES: No edema. LABORATORY DATA: White blood cell count 10, hematocrit 26.3, and platelet count 262. Sodium 140, potassium 4.5, chloride 104, CO2 of 29, BUN 41, creatinine 0.8, and glucose 114. ASSESSMENT: 1. Anemia due to blood loss. 2. Status post embolectomy. 3. Atrial fibrillation. PLAN: CT of the abdomen was basically negative yesterday for retroperitoneal hematoma. She does have a hematoma at the site of the previous embolectomy. This was not considered large enough to account for the drop in her hemoglobin and hematocrit. She is doing better after the transfusion yesterday. We are continuing supportive care otherwise. Anticoagulation is being withheld. Job ID: [id number]
--- NOTE | 2020-02-27 15:25 | PDOC.CPN ---
- Subjective Date: 02/27/20 Time: 15:23 Interval history: Doing better. More energy since blood transfusion. - Review of Systems General: denies: fever/chills, weight/appetite/sleep changes, night sweats, fatigue Respiratory: reports: exercise intolerance. denies: cough, congestion, shortness of breath Cardiovascular: denies: chest pain, palpitation, edema, paroxysmal nocturnal dyspnea, orthopnea Gastrointestinal: denies: nausea, vomiting, diarrhea, constipation, abd pain, GI bleeding Musculoskeletal: denies: pain, tenderness, stiffness, swelling, a rthritis/arthralgias Neurological: denies: numbness, syncope, seizure, weakness - Objective Allergies/Adverse Reactions: Allergies Allergy/AdvReac Type Severity Reaction Status Date / Time Sulfa (Sulfonamide Allergy Verified 02/19/20 15:05 Antibiotics) Visit Medications: Current Medications Acetaminophen (Acetaminophen 325 Mg Tab) 650 mg PO Q6H PRN PRN Reason: Headache/Fever/Mild Pain (1-3) Last Admin: 02/23/20 02:17 Dose: 325 mg Documented by: Hydrocodone Bitart/Acetaminophen (Hydrocodone/Acetaminophen 5/325 Mg Tablet) 1 tab PO Q4H PRN PRN Reason: Mild-Moderate Pain (1-5) Last Admin: 02/23/20 02:16 Dose: 1 tab Documented by: Alprazolam (Alprazolam 0.25 Mg Tab) 0.25 mg PO HS PRN PRN Reason: Insomnia Last Admin: 02/20/20 20:52 Dose: 0.25 mg Documented by: Apixaban (Apixaban 2.5 Mg Tab) 5 mg PO BID [facility] Last Admin: 02/27/20 09:09 Dose: 5 mg Documented by: Atorvastatin Calcium (Atorvastatin Calcium 40 Mg Tab) 40 mg PO HS [facility] Last Admin: 02/26/20 21:04 Dose: 40 mg Documented by: Bisacodyl (Bisacodyl 10 Mg Supp) 10 mg MD Q8H PRN PRN Reason: Constipation Last Admin: 02/27/20 15:22 Dose: 10 mg Documented by: Digoxin (Digoxin 0.125 Mg Tab) 0.125 mg PO DAILY [facility] Last Admin: 02/27/20 09:10 Dose: 0.125 mg Documented by: Fentanyl (Fentanyl 100 Mcg/2 Ml Vial) 25 mcg SLOW IVP Q4H PRN PRN Reason: Mild-Moderate Pain (1-5) Last Admin: 02/21/20 09:08 Dose: 25 mcg Documented by: Fentanyl (Fentanyl 100 Mcg/2 Ml Vial) 50 mcg SLOW IVP Q4H PRN PRN Reason: Moderate to Severe Pain (6-10) Furosemide (Furosemide 20 Mg Tab) 20 mg PO 0900,1400 [facility] Last Admin: 02/27/20 14:59 Dose: 20 mg Documented by: Midodrine (Midodrine Hcl 5 Mg Tab) 2.5 mg PO TID [facility] Last Admin: 02/27/20 15:00 Dose: 2.5 mg Documented by: Polyethylene Glycol (Polyethylene Glycol 3350 17 Gm Packet) 17 gm PO DAILY [facility] Last Admin: 02/27/20 09:10 Dose: 17 gm Documented by: Sodium Chloride (Flush - Normal Saline 10 Ml Syringe) 10 ml IVF PRN PRN PRN Reason: Saline Flush Tramadol HCl (Tramadol Hcl 50 Mg Tab) 50 mg PO Q12H PRN PRN Reason: Mild-Moderate Pain (1-5) Last Admin: 02/24/20 16:30 Dose: 50 mg Documented by: Vital Signs & Weight: Vital Signs Temp Pulse Resp BP Pulse Ox 02/27/20 12:00 98.3 F 94 16 122/64 99 02/27/20 09:10 87 02/27/20 08:00 97.6 F 87 16 110/53 L 98 02/27/20 03:25 98.3 F 88 15 136/63 98 Admit Weight 166 lb Weight 177 lb 11.2 oz - Physical Exam General: alert & oriented x3 HEENT: mucus membranes moist Neck: supple neck Cardiac: irregularly regular Lungs: clear to auscultation Neuro: grossly intact Abdomen: active bowel sounds Extremities: no edema Skin: clear Musculoskeletal: no pain - Labs Result Diagrams: 02/27/20 03:26 02/27/20 03:26 Troponin/CKMB Troponin I 0.048 ng/mL (< 0.028) H 02/22/20 12:54 - Telemetry Supraventricular conduction: atrial fibrillation - Assessment/Plan Assessment/Plan: 1. Persistent Afib, rate controlled 2. S/P embolectomy to leg 2a to afib 3. Acute blood loss anemia 4. Hypotension likely secondary to anemia 5. Possible underlying coromnary disease. 6. ISMAEL on CKD, improved. PLAN: - Continue Eliquis - Hematoma on groin likely cause. No evidence of retroperitoneal hematoma. - Feels much better after one unit of blood transfused. - Remains rate controlled now.
[2020-02-27] MEDS ORDERED: Fleet Enema 133 ML BOT FS SCH (16:45)
[2020-02-27] MEDS: Atorvastatin Calcium 40 MG TAB PO SCH (19:42)
--- NOTE | 2020-02-27 20:11 | PRG ---
DATE OF SERVICE: 02/27/2020 SUBJECTIVE: The patient seems to be doing much better, noted with the following vital signs. OBJECTIVE: VITAL SIGNS: Afebrile, temperature 98.1, pulse 88, respiratory rate of 16, O2 saturations of 99%, blood pressure 135/60. HEENT: Unremarkable. CARDIOVASCULAR: First and second heart sounds were heard. RESPIRATORY SYSTEM: Clear to auscultation. DIGESTIVE SYSTEM: Revealed a benign abdomen. EXTREMITIES: No peripheral edema. SKIN: No new gross rash. LYMPHATICS: No peripheral lymphadenopathy. IMPRESSION: Acute on chronic kidney disease which seems to have greatly improved. PLAN: 1. We will continue current renal supportive measures. 2. We will be following peripherally. 3. Further management to be dependent on the clinical course. Job ID: [id number]
[2020-02-28 04:05] LABS: #Eosinphils 0.1 thou/uL (0.0-0.7); #Lymphocytes 1.2 thou/uL (1.20-3.40); #Monocytes 1.4 thou/uL (0.11-0.59); #Neutrophils 7.7 thou/uL (1.40-6.50); %Basophils 0.2 % (0.0-1.0); %Eosinophils 0.7 % (0.0-10.0); %Lymphocytes 11.5 % (21.0-51.0); %Monocytes 13.8 % (0.0-10.0); Hemoglobin 9.5 g/dL (12.0-16.0); Mean Corpuscular HGB CONC 32.4 g/dL (32.0-36.0); Mean Corpuscular Hemoglobin 29.2 pg (27.0-31.0); Mean Corpuscular Volume 90.2 fL (78.0-98.0); Mean Platelet Volume 7.4 fL (7.4-10.4); Platelet Count 296 thou/uL (130-400); RBC Distribution Width 13.8 % (11.5-14.5); Red Blood Cell (RBC) Count 3.26 mill/uL (4.20-5.40); White Blood Cell (WBC) Count 10.4 thou/uL (4.8-10.8)
[2020-02-28 04:21] LABS: Anion Gap 12 mmol/L (10-20); BUN (Urea Nitrogen) 40 mg/dL (9.8-20.1); Calc. Creatinine Clearance 63 mL/min (70-130); Calcium 8.4 mg/dL (7.8-10.44); Carbon Dioxide 30 mmol/L (23-31); Chloride 101 mmol/L (98-107); Estimated GFR-MDRD 65; Glucose 121 mg/dL (83-110); Potassium 3.9 mmol/L (3.5-5.1); Sodium 139 mmol/L (136-145)
--- NOTE | 2020-02-28 08:01 | CON ---
DATE OF CONSULTATION: HISTORY OF PRESENT ILLNESS: Ms. Allan is in atrial fibrillation with rate controlled. Her blood pressure has been greater than 120 throughout yesterday. Hemoglobin this morning is 9.5. I reviewed her CT of the abdomen and pelvis and there is nothing to indicate she has retroperitoneal blood. She has an expected fluid collection around her femoral artery that is probably less than 25 mL in volume. Her groin is soft and unchanged from previous examination. She has a good posterior tibial Doppler signal. ASSESSMENT AND PLAN: I would not hesitate to anticoagulate her. She is going to need anticoagulation with her history of embolus with atrial fibrillation. Ambulate as tolerated. Job ID: [id number]
[2020-02-28] MEDS: Digoxin 0.125 MG TAB PO SCH (08:23)
[2020-02-28] MEDS: Furosemide 20 MG TAB PO SCH ×2 (08:23→14:10)
[2020-02-28] MEDS: Polyethylene Glycol 3350 17 GM Packet PO SCH (08:23)
[2020-02-28] MEDS: Apixaban 2.5 MG TAB PO SCH ×2 (08:23→20:10)
[2020-02-28] MEDS: Midodrine HCl 5 MG TAB PO SCH ×3 (08:24→20:09)
[2020-02-28] MEDS ORDERED: Furosemide 20 MG/2 ML VIAL SLOW IVP SCH (09:15)
--- NOTE | 2020-02-28 09:30 | PRG ---
DATE OF SERVICE: 02/28/2020 SUBJECTIVE: Ms. Allan says that she just completed some physical therapy in the bed. She said she feels short of breath even before the physical therapy. She also feels "dizzy." No chest pain. OBJECTIVE: VITAL SIGNS: Her blood pressure is 130 systolic, pulse is irregular and it is over 100 now, but the rate was below 100 before the physical therapy. LUNGS: Clear. CARDIAC: Irregularly irregular. ABDOMEN: Soft and nontender. EXTREMITIES: Warm and dry. No clubbing. No cyanosis or edema. ASSESSMENT: 1. History of atrial fibrillation, longstanding, persistent. 2. Diastolic congestive heart failure with BNP on the 705. 3. Shortness of breath, probably diastolic heart failure. 4. Anemia status post packed red blood cell transfusion. 5. Hypotension, improved, probably related to volume contraction and bleeding. PLAN: 1. We will go ahead and add Protonix in case it is a gastrointestinal blood loss. Dr. Thomas does not think that there is a lot of hematoma, possibly the blood loss could be gastrointestinal. 2. Give her an extra dose of Lasix. 3. Continue digoxin. 4. Try to wean midodrine. 5. Check blood counts tomorrow. 6. Physical therapy. 7. She is on full anticoagulation. Job ID: [id number]
[2020-02-28] MEDS ORDERED: Potassium Chloride 20 MEQ TAB PO SCH (12:00)
[2020-02-28 14:14] VITALS: BMI 32.5
--- NOTE | 2020-02-28 15:39 | PDOC.FMACP ---
Advance Care Planning - Problem (1) Palliative care encounter Status: Acute Code(s): Z51.5 - ENCOUNTER FOR PALLIATIVE CARE (2) ISMAEL (acute kidney injury) Status: Acute Code(s): N17.9 - ACUTE KIDNEY FAILURE, UNSPECIFIED (3) Deep vein thrombosis (DVT) of right lower extremity Status: Acute Code(s): I82.401 - ACUTE EMBOLISM AND THOMBOS UNSP DEEP VEINS OF R LOW EXTREM Qualifiers: Affected thrombotic vein of extremity: femoral Chronicity: acute Qualified Code(s): I82.411 - Acute embolism and thrombosis of right femoral vein (4) Afib Status: Chronic Code(s): I48.91 - UNSPECIFIED ATRIAL FIBRILLATION Qualifiers: Atrial fibrillation type: paroxysmal Qualified Code(s): I48.0 - Paroxysmal atrial fibrillation (5) Chronic kidney disease (CKD) Status: Chronic Code(s): N18.9 - CHRONIC KIDNEY DISEASE, UNSPECIFIED Qualifiers: Chronic kidney disease stage: stage 3 (moderate) (6) Hypertension Status: Chronic Code(s): I10 - ESSENTIAL (PRIMARY) HYPERTENSION Qualifiers: Hypertension type: essential hypertension Qualified Code(s): I10 - Essential (primary) hypertension - Note Participants: patient, palliative care Summary: Palliative Care addressed Advanced Care Planning, opportunity to decline. The diagnosis, prognosis and goals of care have been discussed. Appropriate forms and documentation to accomplish the goals of care were discussed. All questions were answered. Ms Allan elected to transition a DNAR, and complete an O OHDNAR as well as Directive to physician. Original and copies of directive to physician were given to patient as well as copy placed on chart for medical records. OOHDNAR will be given to patient after signature by Dr Roland and copy also placed on chart for medical records. The Palliative Care Team will be engaged to assist with completion of any outstanding forms that are needed. Time Spent (mins): 20
--- NOTE | 2020-02-28 18:28 | PRG ---
DATE OF SERVICE: 02/28/2020 OBJECTIVE: VITAL SIGNS: The patient is noted with the following vital signs; afebrile, temperature 97.9, pulse 83, respiratory rate of 16, O2 saturation of 99%, blood pressure 135/61. HEENT: Unremarkable. CARDIOVASCULAR SYSTEM: First and second heart sounds were heard. RESPIRATORY SYSTEM: Clear to auscultation. DIGESTIVE SYSTEM: Revealed a benign abdomen with positive bowel sounds. EXTREMITIES: No peripheral edema. SKIN: No new gross rash. LYMPHATICS: No peripheral lymphadenopathy. IMPRESSION: Acute kidney injury, which seems to have improved. PLAN: Continue current renal supportive measures. Job ID: [id number]
--- NOTE | 2020-02-28 19:17 | PDOC.HOSPP ---
- Subjective Encounter Date: 02/28/20 Subjective: She reports that she has been through a lot of activity today including physical therapy. States that after all that she feels actually quite a bit better. - Objective Vital Signs & Weight: Vital Signs (12 hours) Temp Pulse Pulse Pulse Resp BP BP 02/28/20 15:45 97.9 F 83 02/28/20 14:09 91 02/28/20 11:44 98.0 F 95 15 02/28/20 11:40 141/65 H 02/28/20 08:42 109 H 105 H 134/58 L 136/61 02/28/20 08:23 98 BP Pulse Ox Pulse Ox Pulse Ox 02/28/20 15:45 135/61 99 02/28/20 14:09 133/67 02/28/20 11:44 141/65 H 99 02/28/20 11:40 02/28/20 08:42 96 97 02/28/20 08:23 Weight Admit Weight 166 lb Weight 177 lb 11.2 oz Most Recent Monitor Data Heart Rate from ECG 74 NIBP 119/53 NIBP BP-Mean 90 Respiration from ECG 22 SpO2 99 I&O: 02/27/20 02/28/20 02/29/20 06:59 06:59 06:59 Intake Total 400 200 720 Output Total 7029 069 0594 Balance -840 350 -6350 Result Diagrams: 02/28/20 03:19 02/28/20 03:19 Hospitalist ROS - Medication Medications: Active Medications Generic Name Dose Route Start Last Admin Trade Name Freq PRN Reason Stop Dose Admin Acetaminophen 650 mg 02/19/20 15:46 02/23/20 02:17 Acetaminophen 325 Mg Tab PO 325 mg Q6H PRN Administration Headache/Fever/Mild Pain (1-3) Hydrocodone Bitart/Acetaminophen 1 tab 02/23/20 02:01 02/23/20 02:16 Hydrocodone/Acetaminophen 5/325 Mg Tablet PO 1 tab Q4H PRN Administration Mild-Moderate Pain (1-5) Alprazolam 0.25 mg 02/19/20 15:55 02/20/20 20:52 Alprazolam 0.25 Mg Tab PO 0.25 mg HS PRN Administration Insomnia Apixaban 5 mg 02/25/20 21:00 02/28/20 08:23 Apixaban 2.5 Mg Tab PO 5 mg BID MELY Administration Atorvastatin Calcium 40 mg 02/19/20 21:00 02/27/20 19:42 Atorvastatin Calcium 40 Mg Tab PO 40 mg HS MELY Administration Bisacodyl 10 mg 02/27/20 09:45 02/27/20 15:22 Bisacodyl 10 Mg Supp GA 10 mg Q8H PRN Administration Constipation Digoxin 0.125 mg 02/27/20 09:00 02/28/20 08:23 Digoxin 0.125 Mg Tab PO 0.125 mg DAILY MELY Administration Fentanyl 25 mcg 02/21/20 08:39 02/21/20 09:08 Fentanyl 100 Mcg/2 Ml Vial SLOW IVP 25 mcg Q4H PRN Administration Mild-Moderate Pain (1-5) Furosemide 20 mg 02/27/20 09:00 02/28/20 14:10 Furosemide 20 Mg Tab PO 20 mg 0900,1400 MELY Administration Midodrine 2.5 mg 02/24/20 21:00 02/28/20 14:10 Midodrine Hcl 5 Mg Tab PO 2.5 mg TID MELY Administration Polyethylene Glycol 17 gm 02/20/20 09:00 02/28/20 08:23 Polyethylene Glycol 3350 17 Gm Packet PO Not Given DAILY MELY Tramadol HCl 50 mg 02/19/20 16:45 02/24/20 16:30 Tramadol Hcl 50 Mg Tab PO 50 mg Q12H PRN Administration Mild-Moderate Pain (1-5) - Exam General Appearance: NAD, awake alert Heart: no murmur, no gallops, no rubs, normal peripheral pulses, irregular Respiratory: CTAB, no wheezes, no rales, no ronchi, normal chest expansion, no tachypnea, normal percussion Gastrointestinal: soft, non-tender, non-distended, normal bowel sounds, no palpable masses, no hepatomegaly, no splenomegaly, no bruit Extremities: no cyanosis, no clubbing Extremities - other findings: Trace bilateral lower extremity edema. Some mild ecchymoses scattered. Musculoskeletal: generalized weakness Psychiatric: normal affect, normal behavior, A&O x 3 Hosp A/P (1) Thrombosis of artery of right lower extremity Code(s): I74.3 - EMBOLISM AND THROMBOSIS OF ARTERIES OF THE LOWER EXTREMITIES Status: Acute (2) ISMAEL (acute kidney injury) Code(s): N17.9 - ACUTE KIDNEY FAILURE, UNSPECIFIED Status: Acute (3) Deep vein thrombosis (DVT) of right lower extremity Code(s): I82.401 - ACUTE EMBOLISM AND THOMBOS UNSP DEEP VEINS OF R LOW EXTREM Status: Acute Qualifiers: Affected thrombotic vein of extremity: femoral Chronicity: acute Qualified Code(s): I82.411 - Acute embolism and thrombosis of right femoral vein (4) Afib Code(s): I48.91 - UNSPECIFIED ATRIAL FIBRILLATION Status: Chronic Qualifiers: Atrial fibrillation type: paroxysmal Qualified Code(s): I48.0 - Paroxysmal atrial fibrillation (5) Chronic kidney disease (CKD) Code(s): N18.9 - CHRONIC KIDNEY DISEASE, UNSPECIFIED Status: Chronic Qualifiers: Chronic kidney disease stage: stage 3 (moderate) (6) Dyslipidemia Code(s): E78.5 - HYPERLIPIDEMIA, UNSPECIFIED Status: Chronic (7) Hypertension Code(s): I10 - ESSENTIAL (PRIMARY) HYPERTENSION Status: Chronic Qualifiers: Hypertension type: essential hypertension Qualified Code(s): I10 - Essential (primary) hypertension (8) Ischemia of right lower extremity Code(s): I99.8 - OTHER DISORDER OF CIRCULATORY SYSTEM Status: Resolved - Plan Right lower extremity ischemia: Patient had a right lower extremity arterial thrombus. She subsequently underwent right iliofemoral embolectomy. She has done well postoperatively. Resuming physical therapy. Leg looks good in general. Anemia: Etiology is unclear. Postoperatively the patient's hemoglobin drifted down to 6.9. She did receive a transfusion. She has no evidence of active bleeding. She has been on anticoagulation. Will heme check stools. Hypotension: Patient has had some postoperative hypotension. Combined with the anemia otherwise concerns for bleed. None was found. She did require some pressors and is now been on oral midodrine. Tapering that as possible. Her usual antihypertensives have been held. Atrial fibrillation: Generally well controlled on digoxin. She remains on Eliquis. Acute on chronic CKD stage III: Patient is currently better than her baseline. She did have some worsening of her GFR down to 21 but that has recovered. Right lower extremity DVT: Continue with Eliquis. Hypertension: Home medications have been held due to subsequent hypotension. Dyslipidemia: Patient remains on her home dose of statin.
[2020-02-28] MEDS: Atorvastatin Calcium 40 MG TAB PO SCH (20:09)
[2020-02-29 05:12] LABS: #Eosinphils 0.2 thou/uL (0.0-0.7); #Lymphocytes 1.5 thou/uL (1.20-3.40); #Monocytes 1.4 thou/uL (0.11-0.59); #Neutrophils 7.4 thou/uL (1.40-6.50); %Basophils 0.2 % (0.0-1.0); %Eosinophils 1.6 % (0.0-10.0); %Lymphocytes 13.9 % (21.0-51.0); %Monocytes 13.3 % (0.0-10.0); Mean Corpuscular HGB CONC 32.4 g/dL (32.0-36.0); Mean Corpuscular Hemoglobin 29.4 pg (27.0-31.0); Mean Corpuscular Volume 90.7 fL (78.0-98.0); Mean Platelet Volume 7.3 fL (7.4-10.4); Platelet Count 343 thou/uL (130-400); RBC Distribution Width 13.9 % (11.5-14.5); Red Blood Cell (RBC) Count 3.39 mill/uL (4.20-5.40); White Blood Cell (WBC) Count 10.4 thou/uL (4.8-10.8)
[2020-02-29] MEDS: Midodrine HCl 5 MG TAB PO SCH (08:49)
[2020-02-29] MEDS: Apixaban 2.5 MG TAB PO SCH ×2 (08:49→21:30)
[2020-02-29] MEDS: Furosemide 20 MG TAB PO SCH ×2 (08:49→14:25)
[2020-02-29] MEDS: Digoxin 0.125 MG TAB PO SCH (08:49)
[2020-02-29] MEDS: Polyethylene Glycol 3350 17 GM Packet PO SCH (08:50)
[2020-02-29] MEDS ORDERED: Potassium Chloride 20 MEQ TAB PO SCH (09:30)
[2020-02-29] MEDS ORDERED: Furosemide 20 MG/2 ML VIAL SLOW IVP SCH (09:30)
--- NOTE | 2020-02-29 09:35 | PRG ---
DATE OF SERVICE: 02/29/2020 SUBJECTIVE: Ms. Allan says she is not feeling well. She apparently choked on some of her food. She thinks she may have aspirated some of that. Chest x-ray has been ordered and is thought to be done. No chest pain. OBJECTIVE: VITAL SIGNS: Blood pressure has improved, actually it is 156/68, pulse is 90 and it is irregular. LUNGS: Clear. CARDIAC: Irregularly irregular. ABDOMEN: Soft, nontender. EXTREMITIES: Still moderate edema. PERTINENT LABORATORY DATA: Creatinine is 0.83, BUN 40. ASSESSMENT: 1. Congestive heart failure, diastolic, probably still some degree of heart failure. 2. Possible aspiration. 3. Hypotension, which is probably due to anemia and blood loss, appears to have resolved. PLAN: 1. She is on digoxin 0.125 mg a day. 2. Apixaban 5 mg twice a day. 3. We will give her an extra dose of Lasix. 4. Stop midodrine. 5. Continue Protonix. 6. Hopefully up and around later today. Job ID: [id number]
--- NOTE | 2020-02-29 10:32 | RAD ---
PORTABLE CHEST 1 VIEW: Date: 02/29/2020 Time: 0922 hours HISTORY: Aspiration. COMPARISON: 02/14/2020. FINDINGS/IMPRESSION: There is haziness at the right lung base suspicious for a small right pleural effusion. No pneumothor aces or lobar consolidation seen. The heart size is normal. POS: AH
[2020-02-29] MEDS: HYDROcodone/Acetaminophen 5/325 mg Tablet PO PRN ×2 (16:58→21:28)
--- NOTE | 2020-02-29 18:42 | PDOC.HOSPP ---
- Subjective Encounter Date: 02/29/20 Subjective: Says she is doing well. She did have an episode of choking on some coffee this morning. She was trying to drink it while recumbent in bed. At the time of my exam she appeared to be fine. Feels like her leg is not fully cooperating. - Objective Vital Signs & Weight: Vital Signs (12 hours) Temp Pulse Pulse Pulse Pulse Resp BP 02/29/20 15:40 98.3 F 89 15 02/29/20 14:23 87 02/29/20 13:24 114 H 92 104 H 138/61 02/29/20 11:16 98.1 F 87 17 02/29/20 08:42 97.9 F 113 H 19 BP BP BP Pulse Ox Pulse Ox Pulse Ox 02/29/20 15:40 130/64 100 02/29/20 14:23 125/58 L 02/29/20 13:24 131/61 138/68 98 97 02/29/20 11:16 127/59 L 99 02/29/20 08:42 156/68 H 98 Weight Admit Weight 166 lb Weight 177 lb 11.2 oz Most Recent Monitor Data Heart Rate from ECG 74 NIBP 119/53 NIBP BP-Mean 90 Respiration from ECG 22 SpO2 99 I&O: 02/28/20 02/29/20 03/01/20 06:59 06:59 06:59 Intake Total 200 720 960 Output Total 550 1800 2375 [facility]510 [phone] Result Diagrams: 02/29/20 04:20 02/28/20 03:19 Hospitalist ROS - Medication Medications: Active Medications Generic Name Dose Route Start Last Admin Trade Name Freq PRN Reason Stop Dose Admin Acetaminophen 650 mg 02/19/20 15:46 02/23/20 02:17 Acetaminophen 325 Mg Tab PO 325 mg Q6H PRN Administration Headache/Fever/Mild Pain (1-3) Hydrocodone Bitart/Acetaminophen 1 tab 02/23/20 02:01 02/29/20 16:58 Hydrocodone/Acetaminophen 5/325 Mg Tablet PO 1 tab Q4H PRN Administration Mild-Moderate Pain (1-5) Alprazolam 0.25 mg 02/19/20 15:55 02/20/20 20:52 Alprazolam 0.25 Mg Tab PO 0.25 mg HS PRN Administration Insomnia Apixaban 5 mg 02/25/20 21:00 02/29/20 08:49 Apixaban 2.5 Mg Tab PO 5 mg BID MELY Administration Atorvastatin Calcium 40 mg 02/19/20 21:00 02/28/20 20:09 Atorvastatin Calcium 40 Mg Tab PO 40 mg HS MELY Administration Bisacodyl 10 mg 02/27/20 09:45 02/27/20 15:22 Bisacodyl 10 Mg Supp [place] 10 mg Q8H PRN Administration Constipation Digoxin 0.125 mg 02/27/20 09:00 02/29/20 08:49 Digoxin 0.125 Mg Tab PO 0.125 mg DAILY MELY Administration Fentanyl 25 mcg 02/21/20 08:39 02/21/20 09:08 Fentanyl 100 Mcg/2 Ml Vial SLOW IVP 25 mcg Q4H PRN Administration Mild-Moderate Pain (1-5) Furosemide 20 mg 02/27/20 09:00 02/29/20 14:25 Furosemide 20 Mg Tab PO 20 mg 0900,1400 MELY Administration Pantoprazole Sodium 40 mg 02/29/20 09:00 02/29/20 08:50 Pantoprazole 40 Mg Tab PO 40 mg DAILY MELY Administration Polyethylene Glycol 17 gm 02/20/20 09:00 02/29/20 08:50 Polyethylene Glycol 3350 17 Gm Packet PO 17 gm DAILY MELY Administration - Exam General Appearance: NAD, awake alert Heart: no murmur, irregular Respiratory: CTAB, no wheezes, no rales, no ronchi, normal chest expansion, no tachypnea, normal percussion Gastrointestinal: soft, non-tender, non-distended, normal bowel sounds, no palpable masses, no hepatomegaly, no splenomegaly, no bruit Extremities: no cyanosis, no clubbing, no edema Extremities - other findings: Warm Skin: normal turgor Musculoskeletal: normal tone, generalized weakness Psychiatric: normal affect, normal behavior, A&O x 3 Hosp A/P (1) Thrombosis of artery of right lower extremity Code(s): I74.3 - EMBOLISM AND THROMBOSIS OF ARTERIES OF THE LOWER EXTREMITIES Status: Acute (2) ISMAEL (acute kidney injury) Code(s): N17.9 - ACUTE KIDNEY FAILURE, UNSPECIFIED Status: Acute (3) Deep vein thrombosis (DVT) of right lower extremity Code(s): I82.401 - ACUTE EMBOLISM AND THOMBOS UNSP DEEP VEINS OF R LOW EXTREM Status: Acute Qualifiers: Affected thrombotic vein of extremity: femoral Chronicity: acute Qualified Code(s): I82.411 - Acute embolism and thrombosis of right femoral vein (4) Afib Code(s): I48.91 - UNSPECIFIED ATRIAL FIBRILLATION Status: Chronic Qualifiers: Atrial fibrillation type: paroxysmal Qualified Code(s): I48.0 - Paroxysmal atrial fibrillation (5) Chronic kidney disease (CKD) Code(s): N18.9 - CHRONIC KIDNEY DISEASE, UNSPECIFIED Status: Chronic Qualifiers: Chronic kidney disease stage: stage 3 (moderate) (6) Dyslipidemia Code(s): E78.5 - HYPERLIPIDEMIA, UNSPECIFIED Status: Chronic (7) Hypertension Code(s): I10 - ESSENTIAL (PRIMARY) HYPERTENSION Status: Chronic Qualifiers: Hypertension type: essential hypertension Qualified Code(s): I10 - Essential (primary) hypertension (8) Ischemia of right lower extremity Code(s): I99.8 - OTHER DISORDER OF CIRCULATORY SYSTEM Status: Resolved - Plan Right lower extremity ischemia: Patient had a right lower extremity arterial thrombus. She subsequently underwent right iliofemoral embolectomy. She has done well postoperatively. Resuming physical therapy. Leg looks good in general. She had some mild hematoma at the surgical site which is now spreading out a bit. Anemia: Etiology is unclear. Postoperatively the patient's hemoglobin drifted down to 6.9. She did receive a transfusion. She has no evidence of active bleeding. She has been on anticoagulation. Stools are heme positive. She remains on a PPI. If her counts remain stable might be able to hold off on additional work- up until she is a little stronger. If they decline she may need evaluation by GI sooner. Hypotension: Patient has had some postoperative hypotension. Combined with the anemia otherwise concerns for bleed. None was found. She did require some pressors and is now been on oral midodrine. Tapering that as possible. Her usual antihypertensives have been held. Atrial fibrillation: Generally well controlled on digoxin. She remains on Eliquis. Acute on chronic CKD stage III: Patient is currently better than her baseline. She did have some worsening of her GFR down to 21 but that has recovered. Right lower extremity DVT: Continue with Eliquis. Hypertension: Home medications have been held due to subsequent hypotension. Dyslipidemia: Patient remains on her home dose of statin. Disposition: Patient is eager to have rehab so that she can return to her baseline functional status and get back home to her garden. She would likely benefit from inpatient rehab.
--- NOTE | 2020-02-29 19:22 | PRG ---
DATE OF SERVICE: 02/29/2020 SUBJECTIVE: Patient noted with the following vital signs. OBJECTIVE: VITAL SIGNS: Temperature 98.3, pulse 89, respiratory rate of 15, O2 saturations are 100%, blood pressure 130/64. HEENT EXAMINATION: Unremarkable. CARDIOVASCULAR SYSTEM: First and second heart sounds were heard. RESPIRATORY SYSTEM: Clear to auscultation. DIGESTIVE SYSTEM: Reveal a benign abdomen. EXTREMITIES: No peripheral edema. SKIN EXAMINATION: No new gross rash. LYMPHATICS: No peripheral lymphadenopathy. IMPRESSION: Acute kidney injury, which has greatly resolved. PLAN: Continue current renal supportive measures. Avoid potentially nephrotoxic agents. Job ID: [id number]
[2020-02-29] MEDS: Atorvastatin Calcium 40 MG TAB PO SCH (21:30)
[2020-02-29 21:53] LABS: Hemoglobin 10.5 g/dL (12.0-16.0); Mean Corpuscular HGB CONC 32.5 g/dL (32.0-36.0); Mean Corpuscular Hemoglobin 29.7 pg (27.0-31.0); Mean Corpuscular Volume 91.5 fL (78.0-98.0); Mean Platelet Volume 6.7 fL (7.4-10.4); Platelet Count 388 thou/uL (130-400); RBC Distribution Width 13.8 % (11.5-14.5); Red Blood Cell (RBC) Count 3.52 mill/uL (4.20-5.40); White Blood Cell (WBC) Count 10.8 thou/uL (4.8-10.8)
[2020-03-01] MEDS ORDERED: Melatonin 3 MG TAB PO SCH ×2 (00:30→21:00)
[2020-03-01] MEDS: Apixaban 2.5 MG TAB PO SCH (09:03)
[2020-03-01] MEDS: Polyethylene Glycol 3350 17 GM Packet PO SCH (09:03)
[2020-03-01] MEDS: Digoxin 0.125 MG TAB PO SCH (09:04)
[2020-03-01] MEDS: Furosemide 20 MG TAB PO SCH ×2 (09:04→14:04)
--- NOTE | 2020-03-01 17:19 | PDOC.DS.DS ---
Provider - Provider Date of Admission: 02/19/20 14:52 Date of Discharge: 03/01/20 Admitting Provider: Marilee Manzano MD Primary Care Physician: [facility] Course - Hospital Course Hospital Course: Discharge diagnosis: #1 lower extremity ischemia 2. Acute kidney injury 3. Groin hematoma 4. Anemia of acute blood loss 5. Hyponatremia 6. COVID-19 test negative Hospital course: Patient was admitted to the hospital on February 19, 2020 for ischemic right lower extremity. At the time of admission, patient was on apixaban for recently diagnosed deep vein thrombosis. Patient also had an IVC filter at the time of admission. She was seen by cardiology service for atrial fibrillation. Left ventricle ejection fraction was 55 to 60% on 2D echocardiogram. She was also seen by cardiovascular surgery. On February 19 she underwent right iliofemoral embolectomy. On February 20 she was transferred to the critical care unit because of concern over right groin incision site having a hematoma. On February 23 she had a central line placed. CT scan of abdomen and pelvis on February 25 showed evidence of hematoma in the right inguinal region adjacent to the femoral vessels with small amount of hemorrhage extending into the right anterolateral aspect of the pelvis as well as small amount of hemorrhage in the subcutaneous soft tissues just lateral to the hematoma. She received 1 unit packed RBC transfusion on February 26, 2020. Her hemoglobin remained stable following transfusion. She also had a positive fecal occult blood test but says that hemoglobin was stable, she may need work-up as outpatient after she is over the acute episode. She was transferred to telemetry floor and continued to improve. She also had acute kidney injury during this hospitalization: The acute kidney injury resolved. COVID-19 test was negative during this hospitalization. She had an elevated BNP of 705 and was started on furosemide for volume overload. Losartan was discontinued due to acute kidney injury. She was held evaluated by rehab services and is being discharged back to [facility], from where she was admitted to the hospital. Discharge destination: [facility] Total amount of time spent coordinating this discharge: 32 minutes Resuscitation Status: 02/28/20 15:44 Resuscitation Status Routine Co-Sign Provider: Resuscitation Status: DNAR: NO Resuscitation Discussed with: Patient - Labs Lab Results: 02/29/20 21:40 02/28/20 03:19 Abnormal Lab Results - Last 48 hrs 02/29/20 04:20: RBC 3.39 L, Hgb 10.0 L, Hct 30.7 L, MPV 7.3 L, Lymphocytes % 13.9 L, Monocytes % 13.3 H, Neutrophils # 7.4 H, Monocytes # 1.4 H 02/29/20 21:40: RBC 3.52 L, Hgb 10.5 L, Hct 32.2 L, MPV 6.7 L Microbiology - Entire Visit 02/29/20 10:27 Rectal - Outer Stool Occult Blood (SHANTEL) - Final - Physical Exam Vitals: Vital Signs (12 hours) Temp Pulse Pulse Pulse Pulse Resp BP 03/01/20 15:48 98.0 F 97 18 03/01/20 14:03 99 03/01/20 11:36 97.9 F 86 16 03/01/20 09:27 88 99 98 117/57 L 03/01/20 07:20 98.1 F 85 16 BP BP Pulse Ox Pulse Ox Pulse Ox Pulse Ox 03/01/20 15:48 118/56 L 96 03/01/20 14:03 129/60 03/01/20 11:36 115/59 L 95 03/01/20 09:27 118/58 L 96 95 98 03/01/20 07:20 138/61 100 Weight Admit Weight 166 lb Weight 169 lb Most Recent Monitor Data Heart Rate from ECG 74 NIBP 119/53 NIBP BP-Mean 90 Respiration from ECG 22 SpO2 99 Physical Exam: The patient was seen and examined on the day of discharge. Plan - Discharge Medications Home Medications: Medication Instructions Recorded Confirmed Type ALPRAZolam 0.25 mg PO HS 02/19/20 02/19/20 History Acetaminophen 500 mg PO Q4HR PRN 02/19/20 02/19/20 History Apixaban [Eliquis] 5 mg PO BID 02/19/20 02/19/20 History Calcium Carbonate [Tums] 1 - 2 tab PO Q6HR PRN 02/19/20 02/19/20 History Polyethylene Glycol 3350 [Miralax] 17 gm PO DAILY 02/19/20 02/19/20 History Simethicone 80 mg PO TID PRN 02/19/20 02/19/20 History traMADol HCl [Tramadol HCl] 50 mg PO Q4HR PRN 02/19/20 02/19/20 History Atorvastatin Calcium [Lipitor] 40 mg PO HS tab 03/01/20 Rx Digoxin [Lanoxin] 0.125 mg PO DAILY tab 03/01/20 Rx Furosemide [Lasix] 20 mg PO 0900,1400 tab 03/01/20 Rx Melatonin 3 mg PO HS tab 03/01/20 Rx Pantoprazole [Protonix] 40 mg PO DAILY tab 03/01/20 Rx Allergies: Sulfa (Sulfonamide Antibiotics) Allergy (Verified 02/19/20 15:05) - Discharge Instructions Discharge Instructions:: FOLLOW UP WITH GASTROENTEROLOGY OUTPATIENT FOR POSITIVE STOOL OCCULT BLOOD TEST. HAVE YOUR CBC AND CHEM-7 CHECKED IN 5-7 DAYS. Nourishment:: Heart Healthy Diet, Low Sodium Diet - Follow up Plan Referrals: [facility], [facility] [Other] - 1 Day (Inpatient rehab admit.) [facility] [Primary Care Provider] - 7 Days (please call office for follow up appointment.) Dora Hairston MD [Active] - 1 Day (Accepting pcp at the [facility].) Disposition: REHABILITATION INPATIENT Quality - Care Measures CORE MEASURES:: N/A
--- NOTE | 2020-03-01 18:53 | PRG ---
DATE OF SERVICE: 03/01/2020 SUBJECTIVE: The patient is doing well, noted with the following vital signs. OBJECTIVE: VITAL SIGNS: Afebrile, temperature 98, pulse 97, respiratory rate of 18, O2 saturations of 96%, and blood pressure 118/56. HEENT: Unremarkable. CARDIOVASCULAR SYSTEM: First and second heart sounds were heard. RESPIRATORY SYSTEM: Clear to auscultation. DIGESTIVE SYSTEM: Revealed a benign abdomen. EXTREMITIES: No peripheral edema. SKIN: No new gross rash. LYMPHATICS: No peripheral lymphadenopathy. IMPRESSION: Acute kidney injury that has resolved. PLAN: 1. Renal supportive measures. 2. Further management to be dependent on the clinical course. Job ID: [id number]
[2020-03-01] MEDS: Atorvastatin Calcium 40 MG TAB PO SCH (20:36)
[2020-03-01] MEDS ORDERED: Apixaban 5 MG TAB PO SCH (21:00)
[2020-03-01 22:33] VITALS: BP 122/56; TEMP 98.4
--- NOTE | 2020-03-02 05:39 | PQF ---
Dear : Mervin Hayward Date 03/02/20 Please exercise your independent, professional judgment in responding to the clarification form. Clinical indicators are provided on the bottom of this form for your review Can you please further clarify the acuity of diastolic CHF? Please check appropriate box(es): HEART FAILURE: [ ] Acute on chronic diastolic CHF [ x] Chronic diastolic CHF [ ] Other diagnosis, please specify [ ] Unable to determine Physician Signature: Date/Time: 03/02/20 For continuity of documentation, please document condition throughout progress notes and discharge summary. Thank You. To be completed by CDI/Coding staff for physician review: Present Clinical Indicators - Signs / Symptoms / Labs Results and Location in Medical Record [ x ] Ejection Fraction = 55-60% Echocardiogram [ x ] Diastolic congestive heart failure with BNP on PN 02/27 Dr. Almaraz [ x ] Shortness of breath probably diastolic CHF PN 02/27 Dr. Almaraz [ x ] Right lung suspicious for small right pleural effusion Chest X ray 02/28 [ x ] Congestive heart failure, diastolic, probably still some degree of heart failure PN 02/28 pg.1 [ x ] BNP: 705.7H Laboratory 02/24 [ x ] She has edema of both lower extremities Consult 02/19 Present Risk Factors Results and Location in Medical Record [ x ] HTN H and P pg.1 [ x ] CKD H and P pg.1 [ x ] AFib H and P pg.1 [ x ] HLD H and P pg.1 [ x ] 84 years old female H and P pg.1 Present Treatments Results and Location in Medical Record [ x ] IV Lasix 20mg IV MAR [ x ] Cardiology Consult Dr. Almaraz 02/22 [ x ] Echocardiogram 02/19 Echocardiogram 02/19 [ x ] Chest X ray 02/28 [facility] Signature: Dakota Nevarez Phone #: ext [phone] Date:P 03/02/20 MTDD
== END 2020-03-01 21:30 | DRG 271 ==
LOC: 2NO 14:52 → CCU 02-21 20:08 → 2NO 02-26 20:09
PROVIDERS: ADMIT Family Medicine; ATTEND Internal Medicine
PROC: 04CC0ZZ Extirpation of Matter from Right Common Iliac Artery, Open Approach (ICD-10-PCS; principal; 2020-02-20)
PROC: 04CK0ZZ Extirpation of Matter from Right Femoral Artery, Open Approach (ICD-10-PCS; 2020-02-20)
PROC: 02HV33Z Insertion of Infusion Device into Superior Vena Cava, Percutaneous Approach (ICD-10-PCS; 2020-02-22)
PROC: 3E033XZ Introduction of Vasopressor into Peripheral Vein, Percutaneous Approach (ICD-10-PCS; 2020-02-25)
PROC: 30233N1 Transfusion of Nonautologous Red Blood Cells into Peripheral Vein, Percutaneous Approach (ICD-10-PCS; 2020-02-26)
DX: I70.221 Atherosclerosis of native arteries of extremities with rest pain, right leg (principal); I74.5 Embolism and thrombosis of iliac artery; I82.411 Acute embolism and thrombosis of right femoral vein; I48.19 Other persistent atrial fibrillation; N17.9 Acute kidney failure, unspecified; D62 Acute posthemorrhagic anemia; I13.0 Hypertensive heart and chronic kidney disease with heart failure and stage 1 through stage 4 chronic kidney disease, or unspecified chronic kidney disease; I50.32 Chronic diastolic (congestive) heart failure; E87.1 Hypo-osmolality and hyponatremia; Z20.828 Contact with and (suspected) exposure to other viral communicable diseases; Z66 Do not resuscitate; Z51.5 Encounter for palliative care; E78.5 Hyperlipidemia, unspecified; G47.33 Obstructive sleep apnea (adult) (pediatric); K59.00 Constipation, unspecified; N18.30 Chronic kidney disease, stage 3 unspecified; I48.0 Paroxysmal atrial fibrillation; I95.81 Postprocedural hypotension; Z90.49 Acquired absence of other specified parts of digestive tract; Z88.2 Allergy status to sulfonamides; Z79.899 Other long term (current) drug therapy; Z79.01 Long term (current) use of anticoagulants
CPT/HCPCS: 36415; 36430; 71045; 74176; 80048; 82274; 82533; 82565; 82805; 83880; 84484; 85025; 85520; 86850; 86900; 86901; 87635; 93005; 93010; 93306; J0690; J1160; J1265; J1644; J1650; J1940; J2405; J2704; J2720; J3010; J7030; P9016; P9047; U0003

== ENCOUNTER 2020-04-14 14:08 | Outpatient (CLI) | payer MEDICARE ==
--- NOTE | 2020-04-14 14:41 | ULT ---
ULTRASOUND DOPPLER DUPLEX VENOUS RIGHT LOWER EXTREMITY: DATE: 04/14/2020 HISTORY: 84-year-old female with right lower extremity pain TECHNIQUE: Grayscale, color-flow, and spectral analysis, of major veins of right lower extremity. FINDINGS: There is demonstration of blood flow with normal compressibility, of the right common femoral, profun da femoral, greater saphenous, femoral, popliteal, and posterior tibial, veins. IMPRESSION: Negative. No deep venous thrombosis of right lower extremity.
== END 2020-04-14 14:09 | disposition home or self-care (01) ==
LOC: ULT 14:08
PROVIDERS: ATTEND Family Medicine
DX: M79.604 Pain in right leg (principal)